=== PATIENT | male | born 1940 | race Caucasian/White ===

== ENCOUNTER 2017-05-28 14:16 | Day surgery (SDC) | payer MEDICARE, BC ==
[2017-05-24 11:00] LABS: BASOPHILS % (AUTO) 0.5 % (0-1); EOSINOPHILS # (AUTO) 0.4 X10'3 (0-0.9); EOSINOPHILS % (AUTO) 8.3 % (0-6); HEMATOCRIT 42.8 % (42.0-52.0); HEMOGLOBIN 14.7 g/dl (14.0-17.9); MEAN CORPUSCULAR HEMOGLOBIN 31.8 PG (27.0-31.0); MEAN CORPUSCULAR HGB CONC 34.4 % (33.0-36.5); MEAN CORPUSCULAR VOLUME 92.5 FL (78-98); MEAN PLATELET VOLUME 8.3 FL (7.4-10.4); MONOCYTES # (AUTO) 0.5 X10'3 (0-0.9); NEUTROPHILS # (AUTO) 3.1 X10'3 (1.8-7.7); NEUTROPHILS % (AUTO) 61.2 % (42-75); PLATELET COUNT 136 X10'3 (140-440); RED BLOOD COUNT 4.62 X10'6 (4.70-6.10); RED CELL DISTRIBUTION WIDTH 13.4 % (11.5-14.5)
[2017-05-24 11:11] LABS: INR 1.1 INR; PARTIAL THROMBOPLASTIN TIME 28 SECONDS (22-32); PROTHROMBIN TIME 11.2 SECONDS (9.0-12.0)
[2017-05-24 11:20] LABS: ALBUMIN 3.6 G/DL (3.4-5.0); ANION GAP 5 (8-16); BLOOD UREA NITROGEN 20 MG/DL (7-18); BUN/CREATININE RATIO 16.7 (5.4-32.0); CALCIUM 9.5 MG/DL (8.5-10.1); CHLORIDE 103 MMOL/L (99-107); GLUCOSE 164 MG/DL (70-104); POTASSIUM 4.7 MMOL/L (3.5-5.1); SODIUM 140 MMOL/L (135-145); eGFR 59 ML/MIN
[2017-05-28] VITALS (7 sets, daily range): BP systolic 110–126; BP diastolic 57–73
[~2017-05-28] VITALS: Ht 177.8 cm; Wt 142.7 kg
[~2017-05-28 14:16] MED LIST: ASCO-336 PO; ATOR10TA70 PO; CHOL10002 PO; CYAN250010 PO; DABI150C PO; ENOX40SY7 SUBCUT; ESCI20TA PO; HYDR-565 PO; LIDO700A5 TP; LIDOcaine 1% (10mg/ml) 2ml vial ONE; LOSA25TA96 PO; LUTE20CA PO; METO25TA6 PO; MODA200T48 PO; MULT1TAB74 PO; NITR0.4T51 SL; OMEP-84 PO; POTA-82 PO; PROAIR 90 MCG INH; TRIAMCINOLONE CREAM TOP
[2017-05-28] MEDS ORDERED: normal saline 1000ml 1,000 ML IV SCH (14:30)
[2017-05-28] MEDS ORDERED: LORazepam 0.5 MG tablet PO PRN (14:30)
[2017-05-28] MEDS ORDERED: diphenhydrAMINE 25mg capsule PO PRN (14:30)
[2017-05-28] MEDS ORDERED: LIDOcaine/PRILOcaine 5gm cream TP ONE (14:35)
[2017-05-28] MEDS ORDERED: METO50TA17 PO (15:39)
[2017-05-28] MEDS ORDERED: CLOP75TA33 PO (15:39)
[2017-05-28] MEDS ORDERED: GABA-534 PO (15:39)
[2017-05-28] MEDS ORDERED: PANT-47 PO (15:39)
[2017-05-28] MEDS ORDERED: LIDOcaine 1%/PF (10mg/ml) 5ml vial ONE (16:22)
[2017-05-28] MEDS ORDERED: verapamil 2.5 mg/ml inj IV ONE (17:22)
[2017-05-28] MEDS ORDERED: fentaNYL/PF 50MCG/1 ML 2ML syringe ONE (17:22)
[2017-05-28] MEDS ORDERED: heparin 1,000 UNITS/NS 500ml 500 ML ONE (17:22)
[2017-05-28] MEDS ORDERED: midazolam 2 mg/2 ml injection ONE (17:22)
[2017-05-28] MEDS ORDERED: heparin 1,000unit/ml 10ml vial 10 ML ONE (17:22)
[2017-05-28] MEDS ORDERED: nitroGLYCERIN-Tridil 50MG/D5W 250 ML IV ONE (17:22)
[2017-05-28] MEDS ORDERED: iohexol 350MG/ML 100ml bottle IV ONE ×2 (17:23→18:13)
[2017-05-28] MEDS ORDERED: HYDROcodone/acetaminophen 5mg/325mg tablet PO PRN (18:40)
[2017-05-28] MEDS ORDERED: ondansetron/PF 4mg/2ml inj IV PRN (18:40)
[2017-05-28] MEDS ORDERED: OXAZEpam 15mg capsule PO PRN (18:45)
[2017-05-28] MEDS ORDERED: proCHLORperazine 10 MG/2 ml inj IV PRN (18:45)
[2017-05-28] MEDS ORDERED: HYDROcodone/acetaminophen 10/325mg tab PO PRN (18:45)
== END 2017-05-28 20:20 | disposition home or self-care (01) ==
LOC: SSTAY O 14:16
PROVIDERS: ATTEND Internal Medicine Interventional Cardiology
DX: I25.10 Atherosclerotic heart disease of native coronary artery without angina pectoris (principal); G47.33 Obstructive sleep apnea (adult) (pediatric); Z86.711 Personal history of pulmonary embolism; Z86.718 Personal history of other venous thrombosis and embolism; Z86.73 Personal history of transient ischemic attack (TIA), and cerebral infarction without residual deficits; I48.91 Unspecified atrial fibrillation; Z95.0 Presence of cardiac pacemaker; Z95.5 Presence of coronary angioplasty implant and graft; I12.9 Hypertensive chronic kidney disease with stage 1 through stage 4 chronic kidney disease, or unspecified chronic kidney disease; N18.9 Chronic kidney disease, unspecified; E78.5 Hyperlipidemia, unspecified
CPT/HCPCS: 36415; 80048; 85025; 85610; 85730; 93458; A6257; A6258; A6402; A6449; C1769; J1644; J2001; J2250; J3010; J3490; J7030; Q0163; Q9967; 99152; 99153; A4620

== ENCOUNTER 2019-02-19 16:00 | Inpatient (IN) | payer MEDICARE, BC ==
[~2019-02-19] VITALS: Ht 175.3 cm; Wt 122.7 kg
[~2019-02-19 16:00] MED LIST changes: -ASCO-336 PO; +CLOP75TA33 PO; +GABA-534 PO; +HYDR-4353 PO; -HYDR-565 PO; -LIDOcaine 1% (10mg/ml) 2ml vial ONE; -METO25TA6 PO; +METO50TA17 PO; -MODA200T48 PO; -OMEP-84 PO; +PANT-47 PO; -PROAIR 90 MCG INH
[2019-02-19] MEDS ORDERED: aspirin 81mg tab.chew PO ONE (16:55)
[2019-02-19 17:28] LABS: BASOPHILS % (AUTO) 0 % (0-1); EOSINOPHILS % (AUTO) 0.4 % (0-6); HEMOGLOBIN 15.2 g/dl (14.0-17.9); LYMPHOCYTES # (AUTO) 0.9 X10'3 (1.1-4.8); LYMPHOCYTES % (AUTO) 8.8 % (21-51); MEAN CORPUSCULAR HEMOGLOBIN 31.2 PG (27.0-31.0); MEAN CORPUSCULAR HGB CONC 33.8 g/dL (33.0-36.5); MEAN CORPUSCULAR VOLUME 92.5 FL (78-98); MEAN PLATELET VOLUME 9.5 FL (7.4-10.4); MONOCYTES # (AUTO) 0.8 X10'3 (0-0.9); MONOCYTES % (AUTO) 7.6 % (2-12); NEUTROPHILS # (AUTO) 8.5 X10'3 (1.8-7.7); NEUTROPHILS % (AUTO) 83.2 % (42-75); PLATELET COUNT 181 X10'3 (140-440); RED BLOOD COUNT 4.86 X10'6 (4.70-6.10); RED CELL DISTRIBUTION WIDTH 13.4 % (11.5-14.5); WHITE BLOOD COUNT 10.3 X10'3 (4.5-11.0)
[2019-02-19 17:47] LABS: ALANINE AMINOTRANSFERASE 36 U/L (12-78); ALBUMIN 3.2 G/DL (3.4-5.0); ALBUMIN/GLOBULIN RATIO 0.9 (1.1-1.5); ALKALINE PHOSPHATASE 61 IU/L (46-116); ANION GAP 11 (8-16); ASPARTATE AMINO TRANSFERASE 19 U/L (10-37); BILIRUBIN,TOTAL 0.9 MG/DL (0.1-1.0); BLOOD UREA NITROGEN 24 MG/DL (7-18); BUN/CREATININE RATIO 15.3 (5.4-32.0); CALCIUM 9.1 MG/DL (8.5-10.1); CHLORIDE 96 MMOL/L (99-107); CREATININE 1.57 MG/DL (0.60-1.10); MAGNESIUM 1.6 MG/DL (1.5-2.4); POTASSIUM 4.7 MMOL/L (3.5-5.1); SODIUM 132 MMOL/L (135-145); TOTAL CARBON DIOXIDE 25.4 MMOL/L (24-32); TOTAL PROTEIN 6.8 G/DL (6.4-8.2); eGFR 43 ML/MIN
[2019-02-19 17:48] LABS: GLUCOSE 664 MG/DL (70-104)
[2019-02-19] MEDS ORDERED: insulin regular, human 10 units/0.1 ml syringe IV ONE ×2 (18:15→19:25)
[2019-02-19] MEDS ORDERED: normal saline 1000ML IV soln IVB ONE (18:15)
[2019-02-19] MEDS ORDERED: HYDROcodone/acetaminophen 10/325mg tab PO ONE (18:25)
--- NOTE | 2019-02-19 18:32 | NUR ---
PLEAE CALL IF PT GETS MOVED UPSTAIRS, MARY
[2019-02-19] MEDS ORDERED: DABI150C PO (18:49)
[2019-02-19] MEDS ORDERED: FENO134C PO (18:49)
[2019-02-19] MEDS ORDERED: PANT20TA3 PO (18:49)
[2019-02-19] MEDS ORDERED: LEVO50TA8 PO (18:49)
[2019-02-19] MEDS ORDERED: MAGN400C PO (18:49)
[2019-02-19] MEDS ORDERED: DULO20CA50 PO (18:49)
[2019-02-19] MEDS ORDERED: ATOR10TA PO (18:49)
[2019-02-19] MEDS ORDERED: mag hydrox/Alum hydrox/simeth 30ml oral suspension PO PRN (19:30)
[2019-02-19] MEDS ORDERED: dextrose ORAL solution 15 GM/59 ML bottle PO PRN ×2 (19:30)
[2019-02-19] MEDS ORDERED: magnesium hydroxide 30ml (MOM) UD suspension PO PRN (19:30)
[2019-02-19] MEDS ORDERED: potassium Cl 20 mEq SR tablet PO PRN ×2 (19:30)
[2019-02-19] MEDS ORDERED: MESSAGE TO PHARMACY PO ONE (19:30)
[2019-02-19] MEDS ORDERED: potassium CL 10mEq/100ml bag 100 ML IV PRN ×2 (19:30)
[2019-02-19] MEDS ORDERED: glucagon, human recombinant 1mg kit SUBCUT PRN (19:30)
[2019-02-19] MEDS ORDERED: dextrose 50%-water 50ml dispensing syringe IV PRN ×2 (19:30)
[2019-02-19] MEDS ORDERED: magnesium Cl slow-release 64mg tablet PO PRN (19:30)
[2019-02-19] MEDS ORDERED: magnesium 2GM in 50ml NS 50 ML IV PRN (19:30)
[2019-02-19] MEDS ORDERED: HYDROcodone/acetaminophen 5mg/325mg tablet PO PRN (19:30)
[2019-02-19] MEDS ORDERED: morphine 2 MG/ML inj. syringe IV PRN ×2 (19:30)
[2019-02-19] MEDS ORDERED: acetaminophen 325mg tablet PO PRN ×2 (19:30)
[2019-02-19] MEDS ORDERED: magnesium 4gm in 100ml NS 100 ML IV PRN (19:30)
[2019-02-19] MEDS ORDERED: ondansetron/PF 4mg/2ml inj IV PRN (19:30)
[2019-02-19] MEDS ORDERED: nitroGLYCERIN 0.4mg SUBLingual tab SL PRN (19:30)
[2019-02-19 20:11] LABS: HEMOGLOBIN A1C 11.8 % (4.5-6.2)
--- NOTE | 2019-02-19 20:34 | NUR ---
PT BG CHECKED, AND PT GIVEN DINNER TRAY
--- NOTE | 2019-02-19 20:45 | NUR ---
received pt report from Gricelda MAYER RN, had opportunity to ask questions.
--- NOTE | 2019-02-19 20:52 | NUR ---
pt arrived to unit with all belongings via gurney, pt ambulated to bed, pt oriented to room and unit, call light in reach, tele placed on pt, VS stable.
[2019-02-19 20:55] VITALS: BP 138/70
[2019-02-19] MEDS ORDERED: insulin glargine (Lantus) pen - multi-dose SQ SCH (21:00)
[2019-02-19] MEDS: insulin Lispro (HumaLOG) vial - multi-dose SQ SCH (22:22)
[2019-02-19 23:00] VITALS: BP 120/64
[2019-02-19] MEDS: nitroGLYCERIN 0.4mg/hour patch TD SCH (23:01)
--- NOTE | 2019-02-19 23:58 | NUR ---
unable to complete timing of medications in med rec at this time. pt states "I don't know what medications I take you have to ask my " will be in tomorrow
[2019-02-20] MEDS: gabapentin 400mg capsule PO SCH ×2 (00:02→07:24)
[2019-02-20] MEDS: enoxaparin 60mg/0.6ml syringe SUBCUT SCH ×2 (00:03→07:26)
[2019-02-20 03:00] VITALS: BP 127/69
[2019-02-20 05:37] LABS: BASOPHILS % (AUTO) 0.1 % (0-1); EOSINOPHILS # (AUTO) 0.1 X10'3 (0-0.9); EOSINOPHILS % (AUTO) 1.2 % (0-6); HEMATOCRIT 42.1 % (42.0-52.0); HEMOGLOBIN 14.6 g/dl (14.0-17.9); LYMPHOCYTES # (AUTO) 1.7 X10'3 (1.1-4.8); LYMPHOCYTES % (AUTO) 20.8 % (21-51); MEAN CORPUSCULAR HEMOGLOBIN 31.4 PG (27.0-31.0); MEAN CORPUSCULAR HGB CONC 34.6 g/dL (33.0-36.5); MEAN CORPUSCULAR VOLUME 90.6 FL (78-98); MEAN PLATELET VOLUME 9.4 FL (7.4-10.4); MONOCYTES # (AUTO) 0.6 X10'3 (0-0.9); MONOCYTES % (AUTO) 7.4 % (2-12); NEUTROPHILS # (AUTO) 5.8 X10'3 (1.8-7.7); NEUTROPHILS % (AUTO) 70.5 % (42-75); PLATELET COUNT 147 X10'3 (140-440); RED BLOOD COUNT 4.65 X10'6 (4.70-6.10); RED CELL DISTRIBUTION WIDTH 13.4 % (11.5-14.5); WHITE BLOOD COUNT 8.2 X10'3 (4.5-11.0)
[2019-02-20] MEDS ORDERED: normal saline 1000ml 1,000 ML IV ONE (05:50)
[2019-02-20 05:51] LABS: ANION GAP 9 (8-16); BLOOD UREA NITROGEN 23 MG/DL (7-18); CALCIUM 9.2 MG/DL (8.5-10.1); CHLORIDE 98 MMOL/L (99-107); CREATININE 1.21 MG/DL (0.60-1.10); GLUCOSE 330 MG/DL (70-104); MAGNESIUM 1.8 MG/DL (1.5-2.4); POTASSIUM 4.1 MMOL/L (3.5-5.1); SODIUM 135 MMOL/L (135-145); TOTAL CARBON DIOXIDE 28.1 MMOL/L (24-32); eGFR 58 ML/MIN
[2019-02-20 06:00] VITALS: BP_SYST 102; BP_SYST 112; BP_DIAS 39; BP_DIAS 58
--- NOTE | 2019-02-20 06:32 | NUR ---
Problems reprioritized. Patient report given, questions answered & plan of care reviewed with Maddy Roper RN.
[2019-02-20] MEDS ORDERED: levoTHYROXINE 25mcg tablet PO SCH (07:00)
--- NOTE | 2019-02-20 07:02 | NUR ---
Patient in room PCU 3026. I have received report from GENNA Javed and had the opportunity to ask questions and assume patient care. Patient is currently resting in bed, bed locked and low, call light in reach, no acute distress, will continue to monitor.
[2019-02-20] MEDS ORDERED: pantoprazole 40mg Tablet.DR PO SCH (07:30)
[2019-02-20] MEDS ORDERED: LIDOcaine 5% patch TP SCH (08:00)
[2019-02-20] MEDS ORDERED: HYDROcodone/acetaminophen 10/325mg tab PO SCH (08:00)
[2019-02-20] MEDS ORDERED: magnesium oxide 400mg tablet PO SCH (08:00)
[2019-02-20] MEDS ORDERED: multivitamins, therapeutics tablet PO SCH (08:00)
[2019-02-20] MEDS ORDERED: cyanocobalamin 500mcg tablet PO SCH (08:00)
[2019-02-20] MEDS ORDERED: K and/or MAG REPLACEMENT MC SCH (08:00)
[2019-02-20] MEDS ORDERED: aspirin 81mg tablet.DR PO SCH (08:00)
[2019-02-20] MEDS ORDERED: atorvastatin 10mg tablet PO SCH ×2 (08:00)
[2019-02-20] MEDS ORDERED: vitamin D (cholecalciferol) 1,000 unit tablet PO SCH (08:00)
[2019-02-20] MEDS ORDERED: duloxetine 20mg capsule.DR PO SCH (08:00)
[2019-02-20] MEDS ORDERED: metoprolol tartrate 50mg tablet PO SCH (08:00)
[2019-02-20] MEDS: insulin Lispro (HumaLOG) vial - multi-dose SQ SCH ×2 (08:28→13:08)
[2019-02-20] MEDS ORDERED: fenofibrate 145mg tablet PO SCH (08:30)
[2019-02-20] MEDS: nitroGLYCERIN 0.4mg/hour patch TD SCH (09:38)
--- NOTE | 2019-02-20 09:56 | NUR ---
PAGER ID: [phone] MESSAGE: Maddy RN, [id number], [id number], Morris, pt c/o 910 chest pain on under left mid axillary 4th ICS, done EKG and getting VS
--- NOTE | 2019-02-20 09:58 | NUR ---
PAGER ID: [phone] MESSAGE: GENNA farmer, [id number], [id number], Morris, EKG appears similar to previous, VSS, applied pt's nitropatch and gave morphine. patient reports pain has shifted to right side of chest still 01/07
[2019-02-20] MEDS ORDERED: FLU VACC QS2019-20(6MOS UP)/PF 60 MCG/0.5 ML SYRINGE IMVAC ONE (10:00)
[2019-02-20] MEDS ORDERED: pneumococcal 23-VAL P-sac vacc 25 mcg/0.5ml vial IMVAC ONE (10:00)
[2019-02-20] MEDS ORDERED: DULO30CA52 PO (10:25)
[2019-02-20 11:00] VITALS: BP 104/53
[2019-02-20 11:10] VITALS: BP 115/46
[2019-02-20] MEDS ORDERED: GLIM4TAB4 PO (12:14)
[2019-02-20] MEDS ORDERED: ASPI-1071 PO (12:14)
[2019-02-20] MEDS ORDERED: METF-950 PO (12:14)
[2019-02-20] MEDS ORDERED: SITA100T11 PO (12:14)
[2019-02-20] MEDS ORDERED: ALBU8.5H8 INH (12:35)
[2019-02-20] MEDS ORDERED: BUDE10.22 INH (12:35)
--- NOTE | 2019-02-20 14:55 | NUR ---
DM education, patient is new onset type 2 diabetes with A1c of 11.8; patient and met at bedside to provide written DM education handout with verbal review and referral to outpatient DM education class. Discussed carb counting in great detail, meal planning, types of carbs, signs of low and high blood glucose. Addendum: 02/20/19 at [address] Amended: Links added.
--- NOTE | 2019-02-20 15:13 | NUR ---
Received order for patient discharge to home. Patient was priovided with appt at DM clinic on next sunday at 10AM, patient prescriptions were called to pharmacy, patient and his were educated on DM nutrition and medications as well as blood glucose checks. telemetry removed, IV removed, catheter tip intact, hemostasis achieved. Patient stable at time of discharge.
== END 2019-02-20 15:00 | disposition home health service (06) | DRG 682 ==
LOC: ER 16:01 → ED HOLD 19:37 → PCU 3S 20:52
PROVIDERS: ADMIT Hospitalist; ATTEND Family Medicine
PROC: 3E0234Z Introduction of Serum, Toxoid and Vaccine into Muscle, Percutaneous Approach (ICD-10-PCS; principal; 2019-02-20)
PROC: 3E02340 Introduction of Influenza Vaccine into Muscle, Percutaneous Approach (ICD-10-PCS; 2019-02-20)
DX: N17.0 Acute kidney failure with tubular necrosis (principal); E11.00 Type 2 diabetes mellitus with hyperosmolarity without nonketotic hyperglycemic-hyperosmolar coma (NKHHC); K50.90 Crohn's disease, unspecified, without complications; Z68.41 Body mass index [BMI] 40.0-44.9, adult; K21.9 Gastro-esophageal reflux disease without esophagitis; E66.01 Morbid (severe) obesity due to excess calories; E03.9 Hypothyroidism, unspecified; E11.22 Type 2 diabetes mellitus with diabetic chronic kidney disease; E78.00 Pure hypercholesterolemia, unspecified; E78.1 Pure hyperglyceridemia; E78.5 Hyperlipidemia, unspecified; F31.9 Bipolar disorder, unspecified; F41.9 Anxiety disorder, unspecified; G89.4 Chronic pain syndrome; I12.9 Hypertensive chronic kidney disease with stage 1 through stage 4 chronic kidney disease, or unspecified chronic kidney disease; E11.40 Type 2 diabetes mellitus with diabetic neuropathy, unspecified; I25.10 Atherosclerotic heart disease of native coronary artery without angina pectoris; J44.9 Chronic obstructive pulmonary disease, unspecified; L40.9 Psoriasis, unspecified; M19.90 Unspecified osteoarthritis, unspecified site; N18.3 Chronic kidney disease, stage 3 (moderate); N40.0 Benign prostatic hyperplasia without lower urinary tract symptoms; Z79.84 Long term (current) use of oral hypoglycemic drugs; Z79.899 Other long term (current) drug therapy; Z86.711 Personal history of pulmonary embolism; Z86.73 Personal history of transient ischemic attack (TIA), and cerebral infarction without residual deficits; Z87.891 Personal history of nicotine dependence; Z90.49 Acquired absence of other specified parts of digestive tract; Z91.19 Patient's noncompliance with other medical treatment and regimen; Z99.81 Dependence on supplemental oxygen; Z23 Encounter for immunization; Z95.0 Presence of cardiac pacemaker; Z88.2 Allergy status to sulfonamides; Z95.5 Presence of coronary angioplasty implant and graft; Z71.3 Dietary counseling and surveillance
CPT/HCPCS: 36415; 71045; 80048; 80053; 82948; 83036; 83605; 83735; 83880; 84484; 85025; 87040; 87081; 90732; 93005; 96374; 99285; G0378; J1650; J1815; J2270; J7030

== ENCOUNTER 2019-12-18 13:05 | Day surgery (SDC) | payer MEDICARE, BC ==
[~2019-12-18 13:05] MED LIST changes: +ALBU8.5H8 INH; +ASPI-1071 PO; +BUDE10.22 INH; -CLOP75TA33 PO; +DULO30CA52 PO; -ENOX40SY7 SUBCUT; -ESCI20TA PO; +FENO134C PO; +LEVO50TA8 PO; +MAGN400C PO; +MULT-620 PO; -MULT1TAB74 PO; -PANT-47 PO; +PANT20TA3 PO; +SITA100T11 PO; -TRIAMCINOLONE CREAM TOP
[2019-12-18] MEDS ORDERED: LIDOcaine 2% 5ml jelly ONE (13:25)
== END 2019-12-18 13:40 | disposition home or self-care (01) ==
LOC: WOUND CARE 13:05
PROVIDERS: ATTEND Nurse Practitioner
DX: E11.622 Type 2 diabetes mellitus with other skin ulcer (principal); L98.492 Non-pressure chronic ulcer of skin of other sites with fat layer exposed; L02.213 Cutaneous abscess of chest wall; I11.0 Hypertensive heart disease with heart failure; I50.9 Heart failure, unspecified; E11.36 Type 2 diabetes mellitus with diabetic cataract; E11.51 Type 2 diabetes mellitus with diabetic peripheral angiopathy without gangrene; I25.10 Atherosclerotic heart disease of native coronary artery without angina pectoris; I25.2 Old myocardial infarction; M19.90 Unspecified osteoarthritis, unspecified site; E78.5 Hyperlipidemia, unspecified; J44.9 Chronic obstructive pulmonary disease, unspecified; K50.90 Crohn's disease, unspecified, without complications; E03.9 Hypothyroidism, unspecified; F41.9 Anxiety disorder, unspecified; F32.9 Major depressive disorder, single episode, unspecified; Z86.711 Personal history of pulmonary embolism; Z90.49 Acquired absence of other specified parts of digestive tract; Z85.828 Personal history of other malignant neoplasm of skin; Z95.0 Presence of cardiac pacemaker; Z95.5 Presence of coronary angioplasty implant and graft; Z86.73 Personal history of transient ischemic attack (TIA), and cerebral infarction without residual deficits
CPT/HCPCS: 36416; 82948; 97597

== ENCOUNTER 2019-12-25 12:51 | Day surgery (SDC) | payer MEDICARE, BC ==
[2019-12-25] MEDS ORDERED: LIDOcaine 2% 5ml jelly ONE (13:18)
== END 2019-12-25 13:57 | disposition home or self-care (01) ==
LOC: WOUND CARE 12:51
PROVIDERS: ATTEND Nurse Practitioner
DX: E11.622 Type 2 diabetes mellitus with other skin ulcer (principal); L98.492 Non-pressure chronic ulcer of skin of other sites with fat layer exposed; L02.213 Cutaneous abscess of chest wall; I11.0 Hypertensive heart disease with heart failure; I50.9 Heart failure, unspecified; E11.36 Type 2 diabetes mellitus with diabetic cataract; E11.51 Type 2 diabetes mellitus with diabetic peripheral angiopathy without gangrene; I25.2 Old myocardial infarction; M19.90 Unspecified osteoarthritis, unspecified site; E78.5 Hyperlipidemia, unspecified; J44.9 Chronic obstructive pulmonary disease, unspecified; E03.9 Hypothyroidism, unspecified; K50.90 Crohn's disease, unspecified, without complications; F41.9 Anxiety disorder, unspecified; F32.9 Major depressive disorder, single episode, unspecified; Z86.711 Personal history of pulmonary embolism; Z90.49 Acquired absence of other specified parts of digestive tract; Z85.828 Personal history of other malignant neoplasm of skin; Z95.0 Presence of cardiac pacemaker; Z95.5 Presence of coronary angioplasty implant and graft; Z86.73 Personal history of transient ischemic attack (TIA), and cerebral infarction without residual deficits
CPT/HCPCS: 36416; 82948; 97597

== ENCOUNTER 2020-01-01 12:46 | Day surgery (SDC) | payer MEDICARE, BC ==
[~2020-01-01 12:46] MED LIST changes: +PANT20TA18 PO; -PANT20TA3 PO
[2020-01-01] MEDS ORDERED: LIDOcaine 2% 5ml jelly ONE (13:11)
== END 2020-01-01 13:37 | disposition home or self-care (01) ==
LOC: WOUND CARE 12:46
PROVIDERS: ATTEND Nurse Practitioner
DX: E11.622 Type 2 diabetes mellitus with other skin ulcer (principal); L98.492 Non-pressure chronic ulcer of skin of other sites with fat layer exposed; L02.213 Cutaneous abscess of chest wall; M19.90 Unspecified osteoarthritis, unspecified site; I11.0 Hypertensive heart disease with heart failure; I50.9 Heart failure, unspecified; I25.10 Atherosclerotic heart disease of native coronary artery without angina pectoris; I25.2 Old myocardial infarction; J44.9 Chronic obstructive pulmonary disease, unspecified; E78.5 Hyperlipidemia, unspecified; K50.90 Crohn's disease, unspecified, without complications; E03.9 Hypothyroidism, unspecified; F32.9 Major depressive disorder, single episode, unspecified; F41.9 Anxiety disorder, unspecified; Z86.711 Personal history of pulmonary embolism; Z90.49 Acquired absence of other specified parts of digestive tract; Z85.828 Personal history of other malignant neoplasm of skin; Z95.0 Presence of cardiac pacemaker; Z95.5 Presence of coronary angioplasty implant and graft; Z86.73 Personal history of transient ischemic attack (TIA), and cerebral infarction without residual deficits
CPT/HCPCS: 36416; 82948; 97597

== ENCOUNTER → 2020-01-08 | Day surgery (SDC) | payer MEDICARE, BC ==
[~2020-01-08] MED LIST changes: +LIDOcaine 2% 5ml jelly ONE
== END | disposition home or self-care (01) ==
LOC: WOUND CARE 12:00
PROVIDERS: ATTEND Nurse Practitioner
DX: L02.213 Cutaneous abscess of chest wall (principal); E11.622 Type 2 diabetes mellitus with other skin ulcer; L98.492 Non-pressure chronic ulcer of skin of other sites with fat layer exposed; M19.90 Unspecified osteoarthritis, unspecified site; I11.0 Hypertensive heart disease with heart failure; I50.9 Heart failure, unspecified; I25.10 Atherosclerotic heart disease of native coronary artery without angina pectoris; I25.2 Old myocardial infarction; J44.9 Chronic obstructive pulmonary disease, unspecified; E78.5 Hyperlipidemia, unspecified; K50.90 Crohn's disease, unspecified, without complications; E03.9 Hypothyroidism, unspecified; N40.0 Benign prostatic hyperplasia without lower urinary tract symptoms; F32.9 Major depressive disorder, single episode, unspecified; F41.9 Anxiety disorder, unspecified; Z86.711 Personal history of pulmonary embolism; Z90.49 Acquired absence of other specified parts of digestive tract; Z85.828 Personal history of other malignant neoplasm of skin; Z95.0 Presence of cardiac pacemaker; Z95.5 Presence of coronary angioplasty implant and graft; Z86.73 Personal history of transient ischemic attack (TIA), and cerebral infarction without residual deficits
CPT/HCPCS: 36416; 82948; 97597

== ENCOUNTER 2020-01-15 13:00 | Day surgery (SDC) | payer MEDICARE, BC ==
[~2020-01-15 13:00] MED LIST changes: -LIDOcaine 2% 5ml jelly ONE
[2020-01-15] MEDS ORDERED: LIDOcaine 2% 5ml jelly ONE (13:57)
== END 2020-01-15 14:20 | disposition home or self-care (01) ==
LOC: WOUND CARE 13:00
PROVIDERS: ATTEND Nurse Practitioner
DX: T81.31XD Disruption of external operation (surgical) wound, not elsewhere classified, subsequent encounter (principal); E11.622 Type 2 diabetes mellitus with other skin ulcer; L98.492 Non-pressure chronic ulcer of skin of other sites with fat layer exposed; L02.213 Cutaneous abscess of chest wall; M19.90 Unspecified osteoarthritis, unspecified site; I11.0 Hypertensive heart disease with heart failure; I50.9 Heart failure, unspecified; I25.10 Atherosclerotic heart disease of native coronary artery without angina pectoris; J44.9 Chronic obstructive pulmonary disease, unspecified; E78.5 Hyperlipidemia, unspecified; K50.90 Crohn's disease, unspecified, without complications; E03.9 Hypothyroidism, unspecified; N40.0 Benign prostatic hyperplasia without lower urinary tract symptoms; F32.9 Major depressive disorder, single episode, unspecified; F41.9 Anxiety disorder, unspecified; Z86.711 Personal history of pulmonary embolism; Z90.49 Acquired absence of other specified parts of digestive tract; Z85.828 Personal history of other malignant neoplasm of skin; Z95.0 Presence of cardiac pacemaker; Z95.5 Presence of coronary angioplasty implant and graft; Z86.73 Personal history of transient ischemic attack (TIA), and cerebral infarction without residual deficits; Y83.8 Other surgical procedures as the cause of abnormal reaction of the patient, or of later complication, without mention of misadventure at the time of the procedure
CPT/HCPCS: 36416; 82948; 97597

== ENCOUNTER 2020-01-22 13:05 | Day surgery (SDC) | payer MEDICARE, BC ==
[2020-01-22] MEDS ORDERED: LIDOcaine 2% 5ml jelly ONE (13:31)
== END 2020-01-22 14:06 | disposition home or self-care (01) ==
LOC: WOUND CARE 13:05
PROVIDERS: ATTEND Nurse Practitioner
DX: L02.213 Cutaneous abscess of chest wall (principal); E11.622 Type 2 diabetes mellitus with other skin ulcer; L98.492 Non-pressure chronic ulcer of skin of other sites with fat layer exposed; M19.90 Unspecified osteoarthritis, unspecified site; I11.0 Hypertensive heart disease with heart failure; I50.9 Heart failure, unspecified; I25.10 Atherosclerotic heart disease of native coronary artery without angina pectoris; I25.2 Old myocardial infarction; J44.9 Chronic obstructive pulmonary disease, unspecified; E78.5 Hyperlipidemia, unspecified; K50.90 Crohn's disease, unspecified, without complications; E03.9 Hypothyroidism, unspecified; N40.0 Benign prostatic hyperplasia without lower urinary tract symptoms; E11.36 Type 2 diabetes mellitus with diabetic cataract; E11.51 Type 2 diabetes mellitus with diabetic peripheral angiopathy without gangrene; F32.9 Major depressive disorder, single episode, unspecified; F41.9 Anxiety disorder, unspecified; Z86.711 Personal history of pulmonary embolism; Z90.49 Acquired absence of other specified parts of digestive tract; Z85.828 Personal history of other malignant neoplasm of skin; Z95.0 Presence of cardiac pacemaker; Z95.5 Presence of coronary angioplasty implant and graft; Z86.73 Personal history of transient ischemic attack (TIA), and cerebral infarction without residual deficits
CPT/HCPCS: 36416; 82948; 97597

== ENCOUNTER 2020-01-29 12:00 | Day surgery (SDC) | payer MEDICARE, BC | END 2020-01-29 13:58 | disposition home or self-care (01) | LOC: WOUND CARE 12:00 | PROVIDERS: ATTEND Nurse Practitioner | DX: L02.213 Cutaneous abscess of chest wall (principal); E11.622 Type 2 diabetes mellitus with other skin ulcer; L98.492 Non-pressure chronic ulcer of skin of other sites with fat layer exposed; M19.90 Unspecified osteoarthritis, unspecified site; I11.0 Hypertensive heart disease with heart failure; I50.9 Heart failure, unspecified; I25.10 Atherosclerotic heart disease of native coronary artery without angina pectoris; I25.2 Old myocardial infarction; J44.9 Chronic obstructive pulmonary disease, unspecified; E78.5 Hyperlipidemia, unspecified; K50.90 Crohn's disease, unspecified, without complications; E03.9 Hypothyroidism, unspecified; N40.0 Benign prostatic hyperplasia without lower urinary tract symptoms; F32.9 Major depressive disorder, single episode, unspecified; F41.9 Anxiety disorder, unspecified; Z86.711 Personal history of pulmonary embolism; Z90.49 Acquired absence of other specified parts of digestive tract; Z85.828 Personal history of other malignant neoplasm of skin; Z95.0 Presence of cardiac pacemaker; Z95.5 Presence of coronary angioplasty implant and graft; Z86.73 Personal history of transient ischemic attack (TIA), and cerebral infarction without residual deficits | CPT/HCPCS: 36416; 82948; 97597 ==

== ENCOUNTER 2020-02-05 12:50 | Day surgery (SDC) | payer MEDICARE, BC ==
[2020-02-05] MEDS ORDERED: LIDOcaine 2% 5ml jelly ONE (13:49)
== END 2020-02-05 14:27 | disposition home or self-care (01) ==
LOC: WOUND CARE 12:50
PROVIDERS: ATTEND Nurse Practitioner
DX: L02.213 Cutaneous abscess of chest wall (principal); E11.622 Type 2 diabetes mellitus with other skin ulcer; L98.492 Non-pressure chronic ulcer of skin of other sites with fat layer exposed; M19.90 Unspecified osteoarthritis, unspecified site; I11.0 Hypertensive heart disease with heart failure; I50.9 Heart failure, unspecified; I25.10 Atherosclerotic heart disease of native coronary artery without angina pectoris; I25.2 Old myocardial infarction; E11.36 Type 2 diabetes mellitus with diabetic cataract; E11.51 Type 2 diabetes mellitus with diabetic peripheral angiopathy without gangrene; J44.9 Chronic obstructive pulmonary disease, unspecified; E78.5 Hyperlipidemia, unspecified; K50.90 Crohn's disease, unspecified, without complications; E03.9 Hypothyroidism, unspecified; N40.0 Benign prostatic hyperplasia without lower urinary tract symptoms; F32.9 Major depressive disorder, single episode, unspecified; F41.9 Anxiety disorder, unspecified; Z86.711 Personal history of pulmonary embolism; Z90.49 Acquired absence of other specified parts of digestive tract; Z85.828 Personal history of other malignant neoplasm of skin; Z95.0 Presence of cardiac pacemaker; Z95.5 Presence of coronary angioplasty implant and graft; Z86.73 Personal history of transient ischemic attack (TIA), and cerebral infarction without residual deficits
CPT/HCPCS: 36416; 82948; 97597

== ENCOUNTER 2020-06-24 10:10 | Emergency (ER) | payer MEDICARE, BC ==
[~2020-06-24] VITALS: Ht 175.3 cm; Wt 125.0 kg
[~2020-06-24 10:10] MED LIST changes: -ALBU8.5H8 INH; -ASPI-1071 PO; +ASPI-611 PO; -BUDE10.22 INH; -CHOL10002 PO; -CYAN250010 PO; -DULO30CA52 PO; +DULO60CA65 PO; +FURO40TA4 PO; +GLIM4TAB7 PO; +HYDR-3972 PO; -HYDR-4353 PO; -LIDO700A5 TP; +LOSA25TA41 PO; -LOSA25TA96 PO; -LUTE20CA PO; -MAGN400C PO; +METF-950 PO; +METO50TA16 PO; -METO50TA17 PO; -MULT-620 PO; -NITR0.4T51 SL; +NYSPWD TP; -POTA-82 PO; +POTA20TA19 PO; +PRED20TA PO; -SITA100T11 PO; +SITA100T15 PO
[2020-06-24 10:57] LABS: BASOPHILS % (AUTO) 0.5 % (0-1); EOSINOPHILS # (AUTO) 0.4 X10'3 (0-0.9); HEMATOCRIT 43.6 % (42.0-52.0); HEMOGLOBIN 14.2 g/dl (14.0-17.9); LYMPHOCYTES # (AUTO) 1.1 X10'3 (1.1-4.8); LYMPHOCYTES % (AUTO) 12.7 % (21-51); MEAN CORPUSCULAR HEMOGLOBIN 29.2 PG (27.0-31.0); MEAN CORPUSCULAR HGB CONC 32.7 g/dL (33.0-36.5); MEAN CORPUSCULAR VOLUME 89.4 FL (78-98); MEAN PLATELET VOLUME 8.7 FL (7.4-10.4); MONOCYTES # (AUTO) 0.9 X10'3 (0-0.9); MONOCYTES % (AUTO) 9.9 % (2-12); NEUTROPHILS # (AUTO) 6.2 X10'3 (1.8-7.7); NEUTROPHILS % (AUTO) 71.9 % (42-75); PLATELET COUNT 139 X10'3 (140-440); RED BLOOD COUNT 4.87 X10'6 (4.70-6.10); RED CELL DISTRIBUTION WIDTH 15.5 % (11.5-14.5); WHITE BLOOD COUNT 8.6 X10'3 (4.5-11.0)
[2020-06-24 11:11] LABS: ALANINE AMINOTRANSFERASE 27 U/L (12-78); ALBUMIN 3.4 G/DL (3.4-5.0); ALBUMIN/GLOBULIN RATIO 0.9 (1.1-1.5); ALKALINE PHOSPHATASE 35 IU/L (46-116); ANION GAP 5 (8-16); ASPARTATE AMINO TRANSFERASE 18 U/L (10-37); BLOOD UREA NITROGEN 31 MG/DL (7-18); BUN/CREATININE RATIO 18.2 (5.4-32.0); CALCIUM 9.7 MG/DL (8.5-10.1); CHLORIDE 100 MMOL/L (99-107); GLUCOSE 263 MG/DL (70-104); POTASSIUM 3.5 MMOL/L (3.5-5.1); SODIUM 139 MMOL/L (135-145); TOTAL CARBON DIOXIDE 34.2 MMOL/L (24-32); TOTAL PROTEIN 7.3 G/DL (6.4-8.2); eGFR 39 ML/MIN
--- NOTE | 2020-06-24 12:04 | NUR ---
pt returns from ct. at bs
[2020-06-24 12:05] VITALS: BP 117/56
== END 2020-06-24 13:00 | disposition home or self-care (01) ==
LOC: ER 10:10
DX: I50.9 Heart failure, unspecified (principal); I25.10 Atherosclerotic heart disease of native coronary artery without angina pectoris; E78.00 Pure hypercholesterolemia, unspecified; I10 Essential (primary) hypertension; J44.9 Chronic obstructive pulmonary disease, unspecified; F41.9 Anxiety disorder, unspecified; F31.9 Bipolar disorder, unspecified; Z86.73 Personal history of transient ischemic attack (TIA), and cerebral infarction without residual deficits; Z86.711 Personal history of pulmonary embolism; Z86.2 Personal history of diseases of the blood and blood-forming organs and certain disorders involving the immune mechanism; Z90.89 Acquired absence of other organs; Z90.49 Acquired absence of other specified parts of digestive tract; Z95.0 Presence of cardiac pacemaker; Z98.890 Other specified postprocedural states; Z88.2 Allergy status to sulfonamides; Z79.82 Long term (current) use of aspirin; Z79.899 Other long term (current) drug therapy
CPT/HCPCS: 36415; 71045; 74176; 80053; 83880; 84484; 85025; 93005; 99285

== ENCOUNTER 2022-12-19 12:33 | Day surgery (SDC) | payer MEDICARE, BC ==
[2022-12-15 12:37] LABS: BASOPHILS # (AUTO) 0.1 X10'3 (0-0.2); EOSINOPHILS # (AUTO) 0.2 X10'3 (0-0.9); EOSINOPHILS % (AUTO) 5.1 % (0-6); HEMATOCRIT 42.4 % (42.0-52.0); HEMOGLOBIN 13.9 g/dl (14.0-17.9); LYMPHOCYTES # (AUTO) 0.9 X10'3 (1.1-4.8); LYMPHOCYTES % (AUTO) 18.7 % (21-51); MEAN CORPUSCULAR HEMOGLOBIN 30.8 PG (27.0-31.0); MEAN CORPUSCULAR HGB CONC 32.8 g/dL (33.0-36.5); MEAN CORPUSCULAR VOLUME 93.8 FL (78-98); MEAN PLATELET VOLUME 8.9 FL (7.4-10.4); MONOCYTES # (AUTO) 0.4 X10'3 (0-0.9); MONOCYTES % (AUTO) 9.2 % (2-12); PLATELET COUNT 138 X10'3 (140-440); RED BLOOD COUNT 4.52 X10'6 (4.70-6.10); RED CELL DISTRIBUTION WIDTH 15.7 % (11.5-14.5); WHITE BLOOD COUNT 4.6 X10'3 (4.5-11.0)
[2022-12-15 12:46] LABS: APTT 35 SECONDS (22-32); INR 1.3 INR; PROTHROMBIN TIME 13.5 SECONDS (9.0-12.0)
[2022-12-15 12:49] LABS: ALBUMIN 3.6 G/DL (3.4-5.0); ANION GAP 7 (8-16); BLOOD UREA NITROGEN 26 MG/DL (7-18); BUN/CREATININE RATIO 16.9 (10.0-20.0); CALCIUM 9.8 MG/DL (8.5-10.1); CHLORIDE 104 MMOL/L (99-107); CHOL/HDL RATIO 2.2 (0.00-4.99); CHOLESTEROL 82 MG/DL (0-200); CREATININE 1.54 MG/DL (0.60-1.10); GLUCOSE 146 MG/DL (70-104); HDL CHOLESTEROL 37 MG/DL (35-60); LDL CHOLESTEROL 34 MG/DL (50-100); POTASSIUM 4.1 MMOL/L (3.5-5.1); SODIUM 138 MMOL/L (135-145); TOTAL CARBON DIOXIDE 27.5 MMOL/L (24-32); TRIGLYCERIDES 68 MG/DL (20-135); eGFR 43 ML/MIN
[2022-12-19] VITALS (8 sets, daily range): BP systolic 105–127; BP diastolic 47–83; PULSE 73–83; RESP 12–24; TEMP 97.6; O2SAT 93–95
[~2022-12-19] VITALS: Ht 175.3 cm; Wt 123.0 kg
[~2022-12-19 12:33] MED LIST changes: -FENO134C PO; +FENO134C21 PO; +FURO20TA4 PO; -FURO40TA4 PO; -GABA-534 PO; +GABA-535 PO; +METF-1203 PO; -METF-950 PO; -NYSPWD TP; -PANT20TA18 PO; +PANT40TA54 PO; +POTA-207 PO; -POTA20TA19 PO; -PRED20TA PO
[2022-12-19] MEDS ORDERED: diphenhydrAMINE 25mg capsule PO PRN (13:00)
[2022-12-19] MEDS ORDERED: LORazepam 0.5 MG tablet PO PRN (13:00)
[2022-12-19] MEDS ORDERED: normal saline 1,000 ML IV SCH (13:00)
[2022-12-19] MEDS ORDERED: CYAN250014 (14:02)
[2022-12-19] MEDS ORDERED: CHOL100046 PO (14:02)
[2022-12-19] MEDS ORDERED: LUTE20TA PO (14:02)
[2022-12-19] MEDS ORDERED: SEMA14TA2 PO (14:02)
[2022-12-19] MEDS ORDERED: ASCO500T19 PO (14:02)
[2022-12-19] MEDS ORDERED: MAGN400T39 PO (14:02)
[2022-12-19] MEDS ORDERED: KEN0.1O TP (14:02)
[2022-12-19] MEDS ORDERED: heparin 1,000unit/ml 10ml vial 10 ML ONE (15:18)
[2022-12-19] MEDS ORDERED: verapamil 2.5 mg/ml inj IV ONE (15:18)
[2022-12-19] MEDS ORDERED: fentaNYL/PF 50MCG/1 ML 2ML syringe ONE (15:18)
[2022-12-19] MEDS ORDERED: midazolam 1 mg/ML 2ml injection ONE (15:18)
[2022-12-19] MEDS ORDERED: iohexol 350MG/ML 100ml bottle IV ONE (15:18)
[2022-12-19] MEDS ORDERED: nitroGLYCERIN-Tridil 50MG/D5W 250 ML IV ONE (15:18)
[2022-12-19] MEDS ORDERED: LIDOcaine 1% (10mg/ml) 2ml vial ONE (15:18)
[2022-12-19] MEDS ORDERED: HYDROcodone/acetaminophen 5mg/325mg tablet PO PRN (17:05)
[2022-12-19] MEDS ORDERED: HYDROcodone/acetaminophen 10/325mg tab PO PRN (17:05)
== END 2022-12-19 19:10 | disposition home or self-care (01) ==
LOC: SSTAY O 12:33
PROVIDERS: ATTEND Student in an Organized Health Care Education/Training Program
DX: R94.39 Abnormal result of other cardiovascular function study (principal); I25.10 Atherosclerotic heart disease of native coronary artery without angina pectoris; E78.5 Hyperlipidemia, unspecified; I27.20 Pulmonary hypertension, unspecified; E11.22 Type 2 diabetes mellitus with diabetic chronic kidney disease; I13.0 Hypertensive heart and chronic kidney disease with heart failure and stage 1 through stage 4 chronic kidney disease, or unspecified chronic kidney disease; N18.9 Chronic kidney disease, unspecified; I50.9 Heart failure, unspecified; G47.33 Obstructive sleep apnea (adult) (pediatric); I48.0 Paroxysmal atrial fibrillation; I49.5 Sick sinus syndrome; M02.30 Reiter's disease, unspecified site; Z86.711 Personal history of pulmonary embolism; Z86.73 Personal history of transient ischemic attack (TIA), and cerebral infarction without residual deficits; Z95.0 Presence of cardiac pacemaker; Z88.2 Allergy status to sulfonamides; Z88.8 Allergy status to other drugs, medicaments and biological substances; Z95.5 Presence of coronary angioplasty implant and graft; Z86.718 Personal history of other venous thrombosis and embolism; Z79.899 Other long term (current) drug therapy; Z79.82 Long term (current) use of aspirin
CPT/HCPCS: 36415; 80048; 80061; 85025; 85610; 85730; 93005; 93458; 99152; J1644; J2250; J3010; J3490; J7030; Q0163; Q9967; 99153; A4615; A6258; A6402; C1894

== ENCOUNTER 2023-05-16 10:34 | Inpatient (IN) | payer MEDICARE, BC ==
[~2023-05-16] VITALS: Ht 172.7 cm; Wt 114.1 kg
[2023-05-16] VITALS (9 sets, daily range): BP systolic 140; BP diastolic 68; PULSE 82–91; RESP 22–36; TEMP 98.1; O2SAT 93–98
[~2023-05-16 10:34] MED LIST changes: +ASCO500T19 PO; -ASPI-611 PO; -ATOR10TA70 PO; +CHOL100046 PO; +CYAN250014; -DABI150C PO; -FURO20TA4 PO; -GLIM4TAB7 PO; +KEN0.1O TP; -LOSA25TA41 PO; +LUTE20TA PO; +MAGN400T39 PO; -METO50TA16 PO; -POTA-207 PO; +SEMA14TA2 PO; -SITA100T15 PO
[2023-05-16 11:25] LABS: ALANINE AMINOTRANSFERASE 15 U/L (12-78); ALBUMIN 3.3 G/DL (3.4-5.0); ALBUMIN/GLOBULIN RATIO 0.6 (1.1-1.5); ALKALINE PHOSPHATASE 47 IU/L (46-116); ANION GAP 10 (8-16); ASPARTATE AMINO TRANSFERASE 31 U/L (10-37); BASOPHILS % (AUTO) 0.4 % (0-1); BILIRUBIN,TOTAL 1.4 MG/DL (0.1-1.0); BLOOD UREA NITROGEN 25 MG/DL (7-18); BUN/CREATININE RATIO 14.4 (10.0-20.0); CHLORIDE 99 MMOL/L (99-107); CREATININE 1.74 MG/DL (0.60-1.10); EOSINOPHILS # (AUTO) 0.1 X10'3 (0-0.9); EOSINOPHILS % (AUTO) 2.1 % (0-6); GLUCOSE 123 MG/DL (70-104); HEMATOCRIT 40.8 % (42.0-52.0); HEMOGLOBIN 13.4 g/dl (14.0-17.9); LYMPHOCYTES # (AUTO) 0.6 X10'3 (1.1-4.8); LYMPHOCYTES % (AUTO) 11.5 % (21-51); MEAN CORPUSCULAR HEMOGLOBIN 31.3 PG (27.0-31.0); MEAN CORPUSCULAR HGB CONC 32.7 g/dL (33.0-36.5); MEAN CORPUSCULAR VOLUME 95.5 FL (78-98); MEAN PLATELET VOLUME 8.9 FL (7.4-10.4); MONOCYTES # (AUTO) 0.7 X10'3 (0-0.9); MONOCYTES % (AUTO) 14.6 % (2-12); NEUTROPHILS # (AUTO) 3.7 X10'3 (1.8-7.7); NEUTROPHILS % (AUTO) 71.4 % (42-75); PLATELET COUNT 104 X10'3 (140-440); POTASSIUM 4.3 MMOL/L (3.5-5.1); RED BLOOD COUNT 4.27 X10'6 (4.70-6.10); RED CELL DISTRIBUTION WIDTH 15.8 % (11.5-14.5); SODIUM 136 MMOL/L (135-145); TOTAL CARBON DIOXIDE 26.6 MMOL/L (24-32); TOTAL PROTEIN 8.4 G/DL (6.4-8.2); WHITE BLOOD COUNT 5.1 X10'3 (4.5-11.0); eCRCL 31 ML/MIN; eGFR 38 ML/MIN
[2023-05-16] MEDS ORDERED: methylPREDNISolone sod succ 125mg/2ml vial IV ONE (11:25)
[2023-05-16] MEDS ORDERED: CefTRIAXone 2gm/D5W 50ml BAG 50 ML IV SCH (11:25)
[2023-05-16] MEDS ORDERED: magnesium 2GM in 50ml NS 50 ML IV ONE ×2 (11:30→12:30)
[2023-05-16 11:33] LABS: PRO BRAIN NATRIURETIC PEPTIDE 4676 PG/ML (0-450)
[2023-05-16 14:37] LABS: ABG BASE EXCESS -0.7 mmol/L (-2.0-2.0); ABG HCO3 22.6 mmol/L (22.0-26.0); ABG OXYGEN SATURATION 96.5 % (94-97); ABG PH (T) 7.452 (7.340-7.440); ALLEN'S TEST POSITIVE; FCOHb 0.7 % (0.0-3.9); FHHb 3.5 % (0.0-5.0); FMetHb 0.2 % (0.0-1.5); FO2Hb 95.6 % (94-97); MODE MASK - BIPAP; PATIENT TEMPERATURE 36.6; RESPIRATORY RATE 10 b/min; TOTAL HEMOGLOBIN 14.3 G/dl (14.0-17.9)
[2023-05-16] MEDS ORDERED: potassium Cl 40MEQ/1/2NS 520ml 520 ML IV PRN (14:50)
[2023-05-16] MEDS ORDERED: mag hydrox/Alum hydrox/simeth 30ml oral suspension PO PRN (14:50)
[2023-05-16] MEDS ORDERED: ondansetron/PF 4mg/2ml inj IV PRN (14:50)
[2023-05-16] MEDS ORDERED: magnesium 4gm in 100ml NS 100 ML IV PRN (14:50)
[2023-05-16] MEDS ORDERED: magnesium Cl slow-release 64mg tablet PO PRN (14:50)
[2023-05-16] MEDS ORDERED: potassium Cl 20 mEq SR tablet PO PRN ×2 (14:50)
[2023-05-16] MEDS ORDERED: magnesium 2GM in 50ml NS 50 ML IV PRN (14:50)
[2023-05-16] MEDS ORDERED: acetaminophen 325mg tablet PO PRN (14:50)
[2023-05-16] MEDS ORDERED: magnesium hydroxide 30ml (MOM) UD suspension PO PRN (14:50)
[2023-05-16] MEDS ORDERED: ipratropium/albuterol 3ml nebule NEB SCH (15:00)
[2023-05-16] MEDS ORDERED: azithromycin/NS 500mg/250ml 250 ML IV ONE (15:00)
[2023-05-16 15:07] LABS: BILIRUBIN,URINE NEGATIVE (Neg); CLARITY,URINE CLOUDY (Clear); COLOR,URINE YELLOW (Yellow); GLUCOSE, URINE NEGATIVE (Neg); KETONES,URINE NEGATIVE (Neg); LEUKOCYTE ESTERASE ,URINE SMALL (Neg); NITRITES, URINE POSITIVE (Neg); OCCULT BLOOD,URINE MODERATE (Neg); PH,URINE 5.5 (4.8-8.0); PROTEIN,URINE 30 mg/dl (Neg)
[2023-05-16 15:21] LABS: UA COLLECTION TYPE URINAL
[2023-05-16 15:31] LABS: HYALINE CASTS 0-3 /LPF (NEGATIVE); MUCUS STRANDS FEW /LPF (Neg); SQUAMOUS EPITHELIAL CELL,UR FEW /LPF (FEW)
[2023-05-16 15:32] LABS: AMORPHOUS URATES 1+; BACTERIA,URINE 3+ /HPF (Neg); WBC,URINE TNTC /HPF (0-4)
[2023-05-16 15:33] LABS: CAL OXALATE CRYSTALS 2+ /HPF (NEGATIVE)
[2023-05-16 16:15] LABS: THYROID STIMULATING HORMONE 1.34 ulU/ml (0.34-4.50)
[2023-05-16] MEDS: dabigatran 150mg capsule PO SCH (20:00)
[2023-05-16] MEDS: K and/or MAG REPLACEMENT MC SCH (20:10)
[2023-05-16] MEDS: ipratropium/albuterol 3ml nebule NEB PRN (21:05)
[2023-05-16] MEDS: budesonide 0.5mg/2ml UD nebule IH SCH (21:06)
[2023-05-17] VITALS (15 sets, daily range): BP systolic 110–150; BP diastolic 54–83; PULSE 76–99; RESP 18–30; TEMP 97.1–98.3; O2SAT 94–99
[2023-05-17] MEDS: levoTHYROXINE 75mcg tablet PO SCH (07:00)
[2023-05-17 07:35] LABS: BASOPHILS % (AUTO) 0.2 % (0-1); EOSINOPHILS % (AUTO) 0.1 % (0-6); HEMATOCRIT 40.8 % (42.0-52.0); HEMOGLOBIN 13.8 g/dl (14.0-17.9); LYMPHOCYTES # (AUTO) 0.7 X10'3 (1.1-4.8); LYMPHOCYTES % (AUTO) 14.1 % (21-51); MEAN CORPUSCULAR HEMOGLOBIN 31.7 PG (27.0-31.0); MEAN CORPUSCULAR HGB CONC 33.7 g/dL (33.0-36.5); MEAN CORPUSCULAR VOLUME 94.3 FL (78-98); MEAN PLATELET VOLUME 8.9 FL (7.4-10.4); MONOCYTES # (AUTO) 0.9 X10'3 (0-0.9); MONOCYTES % (AUTO) 17.1 % (2-12); NEUTROPHILS # (AUTO) 3.6 X10'3 (1.8-7.7); NEUTROPHILS % (AUTO) 68.5 % (42-75); PLATELET COUNT 107 X10'3 (140-440); RED BLOOD COUNT 4.33 X10'6 (4.70-6.10); RED CELL DISTRIBUTION WIDTH 15.5 % (11.5-14.5); WHITE BLOOD COUNT 5.3 X10'3 (4.5-11.0)
[2023-05-17 07:53] LABS: ALANINE AMINOTRANSFERASE 17 U/L (12-78); ALBUMIN 3.5 G/DL (3.4-5.0); ALBUMIN/GLOBULIN RATIO 0.7 (1.1-1.5); ALKALINE PHOSPHATASE 48 IU/L (46-116); ANION GAP 10 (8-16); ASPARTATE AMINO TRANSFERASE 41 U/L (10-37); BILIRUBIN,TOTAL 1.1 MG/DL (0.1-1.0); BLOOD UREA NITROGEN 26 MG/DL (7-18); BUN/CREATININE RATIO 17.9 (10.0-20.0); CALCIUM 9.9 MG/DL (8.5-10.1); CHLORIDE 100 MMOL/L (99-107); CHOLESTEROL 81 MG/DL (0-200); CREATININE 1.45 MG/DL (0.60-1.10); GLUCOSE 124 MG/DL (70-104); HDL CHOLESTEROL 40 MG/DL (35-60); LDL CHOLESTEROL 31 MG/DL (50-100); MAGNESIUM 2.1 MG/DL (1.5-2.4); PHOSPHORUS 2.6 MG/DL (2.3-4.5); SODIUM 136 MMOL/L (135-145); TOTAL CARBON DIOXIDE 26.3 MMOL/L (24-32); TOTAL PROTEIN 8.7 G/DL (6.4-8.2); TRIGLYCERIDES 56 MG/DL (20-135); eCRCL 37 ML/MIN; eGFR 46 ML/MIN
[2023-05-17] MEDS: dabigatran 150mg capsule PO SCH ×2 (08:00→20:30)
[2023-05-17] MEDS: K and/or MAG REPLACEMENT MC SCH ×2 (08:00→20:00)
[2023-05-17] MEDS ORDERED: furosemide 20 MG/2 ML vial IV SCH (08:00)
[2023-05-17] MEDS: methylPREDNISolone sod succ/PF 40mg inj. IV SCH ×3 (08:31→21:00)
[2023-05-17 08:40] LABS: BURR CELLS FEW; ELLIPTOCYTES FEW; PLATELET ESTIMATE DECREASED; TOTAL CELLS COUNTED 100
[2023-05-17] MEDS: CefTRIAXone/D5W-Rocephin 1gm 50 ML IV SCH (09:02)
[2023-05-17] MEDS: ipratropium/albuterol 3ml nebule NEB PRN ×2 (09:16→20:10)
[2023-05-17] MEDS: budesonide 0.5mg/2ml UD nebule IH SCH ×2 (09:16→20:10)
[2023-05-17] MEDS ORDERED: LEVO75TA PO (09:53)
[2023-05-17] MEDS ORDERED: LOSA25TA41 PO (09:55)
[2023-05-17] MEDS ORDERED: POTA-366 PO (09:57)
[2023-05-17] MEDS ORDERED: ATOR10TA PO (10:03)
[2023-05-17] MEDS ORDERED: SEMA14TA2 PO (10:05)
[2023-05-17] MEDS ORDERED: METO-467 PO (10:34)
[2023-05-17] MEDS ORDERED: triamcinolone acet 0.1% cream 15gm TP PRN (18:50)
[2023-05-17] MEDS: metoprolol tartrate 50mg tablet PO SCH (20:30)
[2023-05-17] MEDS: potassium Cl 20 mEq SR tablet PO SCH (20:30)
[2023-05-17] MEDS: pantoprazole 40mg Tablet.DR PO SCH (20:30)
[2023-05-17] MEDS: Melatonin 3mg tablet PO SCH (20:30)
[2023-05-17] MEDS: furosemide 20 MG/2 ML vial IV SCH (20:31)
[2023-05-18] VITALS (15 sets, daily range): BP systolic 89–150; BP diastolic 56–69; PULSE 76–92; RESP 18–24; TEMP 97.4–98.1; O2SAT 86–95
[2023-05-18] MEDS ORDERED: methylPREDNISolone sod succ/PF 40mg inj. IV ONE
[2023-05-18] MEDS: gabapentin 400mg capsule PO SCH ×2 (00:06→07:51)
[2023-05-18 05:04] LABS: BASOPHILS % (AUTO) 0.3 % (0-1); EOSINOPHILS % (AUTO) 0 % (0-6); HEMATOCRIT 41.9 % (42.0-52.0); HEMOGLOBIN 14.1 g/dl (14.0-17.9); LYMPHOCYTES # (AUTO) 0.7 X10'3 (1.1-4.8); LYMPHOCYTES % (AUTO) 11.7 % (21-51); MEAN CORPUSCULAR HEMOGLOBIN 31.1 PG (27.0-31.0); MEAN CORPUSCULAR HGB CONC 33.6 g/dL (33.0-36.5); MEAN CORPUSCULAR VOLUME 92.6 FL (78-98); MEAN PLATELET VOLUME 8.8 FL (7.4-10.4); MONOCYTES # (AUTO) 0.4 X10'3 (0-0.9); MONOCYTES % (AUTO) 6.8 % (2-12); NEUTROPHILS % (AUTO) 81.2 % (42-75); PLATELET COUNT 112 X10'3 (140-440); RED BLOOD COUNT 4.52 X10'6 (4.70-6.10); RED CELL DISTRIBUTION WIDTH 15.1 % (11.5-14.5); WHITE BLOOD COUNT 6.1 X10'3 (4.5-11.0)
[2023-05-18 05:17] LABS: ALANINE AMINOTRANSFERASE 22 U/L (12-78); ALBUMIN 3.4 G/DL (3.4-5.0); ALBUMIN/GLOBULIN RATIO 0.7 (1.1-1.5); ALKALINE PHOSPHATASE 44 IU/L (46-116); ANION GAP 8 (8-16); ASPARTATE AMINO TRANSFERASE 57 U/L (10-37); BILIRUBIN,TOTAL 0.9 MG/DL (0.1-1.0); BLOOD UREA NITROGEN 27 MG/DL (7-18); BUN/CREATININE RATIO 18.9 (10.0-20.0); CALCIUM 10.2 MG/DL (8.5-10.1); CHLORIDE 99 MMOL/L (99-107); CREATININE 1.43 MG/DL (0.60-1.10); GLUCOSE 176 MG/DL (70-104); MAGNESIUM 1.8 MG/DL (1.5-2.4); SODIUM 135 MMOL/L (135-145); TOTAL CARBON DIOXIDE 28.2 MMOL/L (24-32); TOTAL PROTEIN 8.6 G/DL (6.4-8.2); eCRCL 38 ML/MIN; eGFR 47 ML/MIN
[2023-05-18] MEDS: budesonide 0.5mg/2ml UD nebule IH SCH ×2 (07:34→20:28)
[2023-05-18] MEDS: ipratropium/albuterol 3ml nebule NEB PRN (07:34)
[2023-05-18] MEDS: levoTHYROXINE 75mcg tablet PO SCH (07:48)
[2023-05-18] MEDS: furosemide 20 MG/2 ML vial IV SCH ×2 (07:48→20:00)
[2023-05-18] MEDS: potassium Cl 20 mEq SR tablet PO SCH ×3 (07:48→21:24)
[2023-05-18] MEDS: ascorbic acid 500mg tablet PO SCH (07:49)
[2023-05-18] MEDS: duloxetine 30mg CAPSULE.DR PO SCH (07:50)
[2023-05-18] MEDS: atorvastatin 10mg tablet PO SCH (07:50)
[2023-05-18] MEDS: magnesium oxide 400mg tablet PO SCH (07:51)
[2023-05-18] MEDS: cholecalciferol (vitamin D3) 1,000 unit (25mcg) tablet PO SCH (07:51)
[2023-05-18] MEDS: metoprolol tartrate 50mg tablet PO SCH ×2 (07:52→20:00)
[2023-05-18] MEDS: pantoprazole 40mg Tablet.DR PO SCH ×2 (07:52→20:02)
[2023-05-18] MEDS: methylPREDNISolone sod succ/PF 40mg inj. IV SCH ×3 (07:53→21:32)
[2023-05-18] MEDS ORDERED: levoTHYROXINE 75mcg tablet PO SCH (08:00)
[2023-05-18] MEDS: CefTRIAXone/D5W-Rocephin 1gm 50 ML IV SCH (08:00)
[2023-05-18] MEDS: K and/or MAG REPLACEMENT MC SCH ×2 (08:00→20:12)
[2023-05-18] MEDS: dabigatran 150mg capsule PO SCH ×2 (14:20→20:02)
[2023-05-18] MEDS: ipratropium/albuterol 3ml nebule NEB SCH ×2 (15:47→20:28)
[2023-05-18] MEDS ORDERED: HYDROcodone/acetaminophen 10/325mg tab PO PRN (17:05)
[2023-05-18] MEDS: gabapentin 300mg capsule PO SCH (20:02)
[2023-05-18] MEDS: Melatonin 3mg tablet PO SCH (21:24)
[2023-05-19 02:00] VITALS: BP 147/67; PULSE 84; RESP 24; TEMP 97; O2SAT 97
[2023-05-19] MEDS: ipratropium/albuterol 3ml nebule NEB SCH ×2 (03:00→08:51)
[2023-05-19 06:00] VITALS: BP 141/66; PULSE 81; RESP 18; TEMP 99.7; O2SAT 94
[2023-05-19 06:24] LABS: BASOPHILS % (AUTO) 0.4 % (0-1); EOSINOPHILS % (AUTO) 0 % (0-6); HEMATOCRIT 41.4 % (42.0-52.0); HEMOGLOBIN 13.9 g/dl (14.0-17.9); LYMPHOCYTES # (AUTO) 0.8 X10'3 (1.1-4.8); LYMPHOCYTES % (AUTO) 10.7 % (21-51); MEAN CORPUSCULAR HEMOGLOBIN 31.2 PG (27.0-31.0); MEAN CORPUSCULAR HGB CONC 33.5 g/dL (33.0-36.5); MEAN CORPUSCULAR VOLUME 93.3 FL (78-98); MEAN PLATELET VOLUME 9.2 FL (7.4-10.4); MONOCYTES # (AUTO) 0.9 X10'3 (0-0.9); MONOCYTES % (AUTO) 12.4 % (2-12); NEUTROPHILS # (AUTO) 5.8 X10'3 (1.8-7.7); NEUTROPHILS % (AUTO) 76.5 % (42-75); PLATELET COUNT 122 X10'3 (140-440); RED BLOOD COUNT 4.44 X10'6 (4.70-6.10); RED CELL DISTRIBUTION WIDTH 15.2 % (11.5-14.5); WHITE BLOOD COUNT 7.6 X10'3 (4.5-11.0)
[2023-05-19 06:43] LABS: ALANINE AMINOTRANSFERASE 28 U/L (12-78); ALBUMIN 3.2 G/DL (3.4-5.0); ALBUMIN/GLOBULIN RATIO 0.7 (1.1-1.5); ALKALINE PHOSPHATASE 39 IU/L (46-116); ANION GAP 9 (8-16); ASPARTATE AMINO TRANSFERASE 49 U/L (10-37); BILIRUBIN,TOTAL 0.7 MG/DL (0.1-1.0); BLOOD UREA NITROGEN 34 MG/DL (7-18); BUN/CREATININE RATIO 23.4 (10.0-20.0); CALCIUM 10.2 MG/DL (8.5-10.1); CHLORIDE 100 MMOL/L (99-107); CREATININE 1.45 MG/DL (0.60-1.10); GLUCOSE 202 MG/DL (70-104); MAGNESIUM 1.9 MG/DL (1.5-2.4); PHOSPHORUS 2.8 MG/DL (2.3-4.5); POTASSIUM 4.7 MMOL/L (3.5-5.1); SODIUM 137 MMOL/L (135-145); TOTAL CARBON DIOXIDE 28.2 MMOL/L (24-32); eCRCL 37 ML/MIN; eGFR 46 ML/MIN
[2023-05-19 08:00] VITALS: RESP 18; O2SAT 93
[2023-05-19] MEDS: methylPREDNISolone sod succ/PF 40mg inj. IV SCH (08:19)
[2023-05-19] MEDS: ascorbic acid 500mg tablet PO SCH (08:20)
[2023-05-19] MEDS: cholecalciferol (vitamin D3) 1,000 unit (25mcg) tablet PO SCH (08:20)
[2023-05-19] MEDS: levoTHYROXINE 75mcg tablet PO SCH (08:20)
[2023-05-19] MEDS: furosemide 20 MG/2 ML vial IV SCH (08:20)
[2023-05-19] MEDS: dabigatran 150mg capsule PO SCH (08:20)
[2023-05-19] MEDS: atorvastatin 10mg tablet PO SCH (08:21)
[2023-05-19] MEDS: gabapentin 300mg capsule PO SCH (08:22)
[2023-05-19] MEDS: duloxetine 30mg CAPSULE.DR PO SCH (08:23)
[2023-05-19] MEDS: magnesium oxide 400mg tablet PO SCH (08:23)
[2023-05-19] MEDS: potassium Cl 20 mEq SR tablet PO SCH (08:25)
[2023-05-19] MEDS: metoprolol tartrate 50mg tablet PO SCH (08:25)
[2023-05-19] MEDS: CefTRIAXone/D5W-Rocephin 1gm 50 ML IV SCH (08:26)
[2023-05-19] MEDS: budesonide 0.5mg/2ml UD nebule IH SCH (08:51)
[2023-05-19 08:54] VITALS: PULSE 85; RESP 18; O2SAT 93
[2023-05-19 09:03] VITALS: PULSE 83; RESP 18
[2023-05-19 11:00] VITALS: BP 135/68; PULSE 82; RESP 18; TEMP 97.8; O2SAT 91
[2023-05-19] MEDS ORDERED: DABI150C PO (12:00)
[2023-05-19] MEDS ORDERED: ALBU90AE INH (12:35)
[2023-05-19] MEDS ORDERED: FLUT1BLS13 INH (12:35)
[2023-05-19] MEDS ORDERED: PRE1T PO ×2 (12:35)
[2023-05-19] MEDS ORDERED: AMOX-419 PO (12:35)
[2023-05-19] MEDS ORDERED: PRED10TA23 PO (12:38)
== END 2023-05-19 14:51 | disposition home health service (06) | DRG 193 ==
LOC: ER 10:35 → ED HOLD 14:53 → PCU 3S 22:43
PROVIDERS: ADMIT Family Medicine; ATTEND Family Medicine
PROC: 5A09357 Assistance with Respiratory Ventilation, Less than 24 Consecutive Hours, Continuous Positive Airway Pressure (ICD-10-PCS; principal; 2023-05-16)
PROC: 5A09357 Assistance with Respiratory Ventilation, Less than 24 Consecutive Hours, Continuous Positive Airway Pressure (ICD-10-PCS; 2023-05-17)
DX: J18.9 Pneumonia, unspecified organism (principal); I50.33 Acute on chronic diastolic (congestive) heart failure; J96.21 Acute and chronic respiratory failure with hypoxia; J44.0 Chronic obstructive pulmonary disease with (acute) lower respiratory infection; J44.1 Chronic obstructive pulmonary disease with (acute) exacerbation; M02.30 Reiter's disease, unspecified site; K50.90 Crohn's disease, unspecified, without complications; Z66 Do not resuscitate; N40.0 Benign prostatic hyperplasia without lower urinary tract symptoms; E03.9 Hypothyroidism, unspecified; F31.9 Bipolar disorder, unspecified; F41.9 Anxiety disorder, unspecified; E78.00 Pure hypercholesterolemia, unspecified; I25.10 Atherosclerotic heart disease of native coronary artery without angina pectoris; Z20.822 Contact with and (suspected) exposure to COVID-19; I11.0 Hypertensive heart disease with heart failure; L40.9 Psoriasis, unspecified; I27.20 Pulmonary hypertension, unspecified; Z86.73 Personal history of transient ischemic attack (TIA), and cerebral infarction without residual deficits; Z95.0 Presence of cardiac pacemaker; Z90.49 Acquired absence of other specified parts of digestive tract; Z79.899 Other long term (current) drug therapy; Z95.5 Presence of coronary angioplasty implant and graft; Z86.711 Personal history of pulmonary embolism; Z87.891 Personal history of nicotine dependence; Z88.2 Allergy status to sulfonamides
CPT/HCPCS: 36415; 36600; 71045; 80053; 80061; 81001; 82803; 83036; 83605; 83735; 83880; 84100; 84443; 84484; 85007; 85018; 85025; 87040; 87081; 87088; 87502; 87503; 93005; 93306; 94640; 94660; 94760; 97161; 97530; 99285; A6212; A6250; G0378; J0456; J0696; J1940; J2920; J2930; J3475; J7030

== ENCOUNTER 2024-01-19 09:41 | Inpatient (IN) | payer MEDICARE, BC ==
[~2024-01-19] VITALS: Ht 175.3 cm; Wt 115.5 kg
[~2024-01-19 09:41] MED LIST changes: +ALBU90AE INH; +ATOR10TA PO; +DABI150C PO; +FLUT1BLS13 INH; -LEVO50TA8 PO; +LEVO75TA PO; +LOSA25TA41 PO; +METO-467 PO; +POTA-366 PO
[2024-01-19 10:45] LABS: BASOPHILS % (AUTO) 1.1 % (0-1); EOSINOPHILS # (AUTO) 0.2 X10'3 (0-0.9); EOSINOPHILS % (AUTO) 6.6 % (0-6); HEMATOCRIT 29.1 % (42.0-52.0); HEMOGLOBIN 9.6 g/dl (14.0-17.9); LYMPHOCYTES # (AUTO) 0.8 X10'3 (1.1-4.8); LYMPHOCYTES % (AUTO) 22.5 % (21-51); MEAN CORPUSCULAR VOLUME 93.7 FL (78-98); MEAN PLATELET VOLUME 8.4 FL (7.4-10.4); MONOCYTES # (AUTO) 0.4 X10'3 (0-0.9); NEUTROPHILS # (AUTO) 2.1 X10'3 (1.8-7.7); NEUTROPHILS % (AUTO) 58.8 % (42-75); PLATELET COUNT 142 X10'3 (140-440); RED CELL DISTRIBUTION WIDTH 14.8 % (11.5-14.5); WHITE BLOOD COUNT 3.5 X10'3 (4.5-11.0)
[2024-01-19 11:06] LABS: ALANINE AMINOTRANSFERASE 16 U/L (12-78); ALBUMIN 3.2 G/DL (3.4-5.0); ALBUMIN/GLOBULIN RATIO 0.8 (1.1-1.5); ALKALINE PHOSPHATASE 33 IU/L (46-116); ANION GAP 5 (8-16); ASPARTATE AMINO TRANSFERASE 17 U/L (10-37); BILIRUBIN,TOTAL 0.8 MG/DL (0.1-1.0); BLOOD UREA NITROGEN 34 MG/DL (7-18); BUN/CREATININE RATIO 18.8 (10.0-20.0); CALCIUM 9.4 MG/DL (8.5-10.1); CHLORIDE 104 MMOL/L (99-107); CREATININE 1.81 MG/DL (0.60-1.10); GLUCOSE 175 MG/DL (70-104); SODIUM 140 MMOL/L (135-145); TOTAL CARBON DIOXIDE 30.8 MMOL/L (24-32); TOTAL PROTEIN 7.1 G/DL (6.4-8.2); eCRCL 30 ML/MIN; eGFR 36 ML/MIN
[2024-01-19 11:13] LABS: PRO BRAIN NATRIURETIC PEPTIDE 1787 PG/ML (0-450)
[2024-01-19 11:30] VITALS: PULSE 63; RESP 19; O2SAT 98
[2024-01-19] MEDS: ipratropium/albuterol 3ml nebule NEB ONE (11:30)
[2024-01-19 11:35] VITALS: PULSE 52; RESP 15; O2SAT 100
[2024-01-19 11:44] LABS: BILIRUBIN,URINE NEGATIVE (Neg); CLARITY,URINE CLEAR (Clear); COLOR,URINE YELLOW (Yellow); GLUCOSE, URINE NEGATIVE (Neg); KETONES,URINE NEGATIVE (Neg); LEUKOCYTE ESTERASE ,URINE TRACE (Neg); NITRITES, URINE NEGATIVE (Neg); OCCULT BLOOD,URINE NEGATIVE (Neg); PROTEIN,URINE NEGATIVE (Neg)
[2024-01-19 11:46] LABS: UA COLLECTION TYPE CLN CATCH MIDSTREAM
[2024-01-19 12:01] LABS: BACTERIA,URINE FEW /HPF (Neg); MUCUS STRANDS NONE SEEN /LPF (Neg); RBC,URINE 0-2 /HPF (0-2); SQUAMOUS EPITHELIAL CELL,UR MODERATE /LPF (FEW); TRANSITIONAL EPI CELLS,URINE FEW /HPF; WBC CLUMPS,URINE FEW /HPF (NEGATIVE)
[2024-01-19 12:09] LABS: % IRON SATURATION 13 % (11-46); IRON 57 UG/DL (53-167); TOTAL IRON BINDING CAPACITY 447 UG/DL (259-388)
[2024-01-19] MEDS: furosemide 10 MG/1 ML 10ml inj IV ONE (12:25)
[2024-01-19] MEDS: HYDROcodone/acetaminophen 10/325mg tab PO ONE (12:26)
[2024-01-19] MEDS ORDERED: mag hydrox/Alum hydrox/simeth 30ml oral suspension PO PRN (12:30)
[2024-01-19] MEDS ORDERED: ondansetron/PF 4mg/2ml inj IV PRN (12:30)
[2024-01-19] MEDS ORDERED: acetaminophen 325mg tablet PO PRN (12:30)
[2024-01-19] MEDS ORDERED: potassium Cl 40MEQ/1/2NS 520ml 520 ML IV PRN (12:30)
[2024-01-19] MEDS ORDERED: magnesium Cl slow-release 64mg tablet PO PRN (12:30)
[2024-01-19] MEDS: PERFLUTREN PROTEIN-A MICROSPHR (Optison) 0.22 MG/ML 3ML VIAL IV ONE (12:30)
[2024-01-19] MEDS ORDERED: magnesium sulf-water 4G/100mL 100 ML IV PRN (12:30)
[2024-01-19] MEDS ORDERED: magnesium hydroxide 30ml (MOM) UD suspension PO PRN (12:30)
[2024-01-19] MEDS ORDERED: potassium Cl 20 mEq SR tablet PO PRN ×2 (12:30)
[2024-01-19] MEDS ORDERED: magnesium sulf-water 2g/50mL 50 ML IV PRN (12:30)
[2024-01-19] MEDS ORDERED: glucagon, human recombinant 1mg kit SUBCUT PRN (12:50)
[2024-01-19] MEDS ORDERED: DEXTROSE 15 GM of carb/4 tabs (each vial/BOTTLE has 4 tablets) PO PRN ×2 (12:50)
[2024-01-19] MEDS ORDERED: dextrose 50%-water 50ml dispensing syringe IV PRN ×2 (12:50)
[2024-01-19] MEDS ORDERED: ipratropium/albuterol 3ml nebule NEB PRN (12:50)
[2024-01-19 13:07] LABS: MAGNESIUM 1.6 MG/DL (1.5-2.4); POTASSIUM 4.1 MMOL/L (3.5-5.1)
[2024-01-19 13:10] LABS: APTT 34 SECONDS (22-32); INR 1.4 INR
[2024-01-19 13:27] LABS: OCCULT BLOOD STOOL POSITIVE (Neg)
[2024-01-19] MEDS: pantoprazole 40 MG vial IV SCH ×2 (13:46→20:13)
[2024-01-19] MEDS: INSULIN LISPRO 100 UNIT/ML INSULN.PEN MULTI-DOSE SQ SCH (17:00)
[2024-01-19 17:06] LABS: HEMATOCRIT 27.6 % (42.0-52.0); HEMOGLOBIN 9.2 g/dl (14.0-17.9); MEAN CORPUSCULAR HEMOGLOBIN 30.9 PG (27.0-31.0); MEAN CORPUSCULAR HGB CONC 33.3 g/dL (33.0-36.5); MEAN CORPUSCULAR VOLUME 92.9 FL (78-98); MEAN PLATELET VOLUME 8.3 FL (7.4-10.4); PLATELET COUNT 133 X10'3 (140-440); RED BLOOD COUNT 2.97 X10'6 (4.70-6.10); RED CELL DISTRIBUTION WIDTH 14.4 % (11.5-14.5); WHITE BLOOD COUNT 3.5 X10'3 (4.5-11.0)
[2024-01-19] MEDS ORDERED: ATOR10TA PO (17:14)
[2024-01-19] MEDS ORDERED: PANT20TA18 PO (17:16)
[2024-01-19] MEDS ORDERED: DABI150C PO (17:18)
[2024-01-19] MEDS ORDERED: DULO60CA65 PO (17:21)
[2024-01-19] MEDS ORDERED: ASCO100031 PO (17:25)
[2024-01-19] MEDS ORDERED: GABA-535 PO (17:32)
[2024-01-19 17:34] VITALS: PULSE 60; RESP 16; O2SAT 98
[2024-01-19] MEDS ORDERED: NITR0.4T SL (17:34)
[2024-01-19] MEDS ORDERED: MAGN400C PO (17:38)
[2024-01-19] MEDS ORDERED: BUDE10.22 INH (17:43)
[2024-01-19] MEDS ORDERED: LEVO100T9 PO (17:48)
[2024-01-19] MEDS ORDERED: HYDR-3973 PO (17:52)
[2024-01-19] MEDS ORDERED: BUME2TAB7 PO (17:55)
[2024-01-19] MEDS ORDERED: BUME0.5T6 PO (17:56)
[2024-01-19] MEDS ORDERED: ATOR10TA70 PO ×2 (17:57→17:58)
[2024-01-19] MEDS ORDERED: ISOSORBIDE MONO PO (18:13)
[2024-01-19] MEDS ORDERED: ISOS60TA71 PO (18:16)
[2024-01-19 18:52] VITALS: PULSE 60; RESP 16; O2SAT 90
[2024-01-19] MEDS ORDERED: triamcinolone acet 0.1% cream 15gm TP PRN (18:55)
[2024-01-19] MEDS: normal saline 1000ml 1,000 ML IV SCH (19:38)
[2024-01-19] MEDS: atorvastatin 10mg tablet PO SCH (19:52)
[2024-01-19] MEDS: metoprolol tartrate 50mg tablet PO SCH (19:54)
[2024-01-19 20:00] VITALS: RESP 18; O2SAT 100
[2024-01-19] MEDS: K and/or MAG REPLACEMENT MC SCH (20:00)
[2024-01-19] MEDS ORDERED: METF-900 PO (20:23)
[2024-01-19 21:00] VITALS: BP 118/55; PULSE 60; RESP 18; TEMP 97.7; O2SAT 100
[2024-01-19] MEDS: magnesium oxide 400mg tablet PO SCH (21:50)
[2024-01-19] MEDS: duloxetine 30mg CAPSULE.DR PO SCH (21:50)
[2024-01-19] MEDS: gabapentin 400mg capsule PO PRN (21:50)
[2024-01-19] MEDS: ascorbic acid 500mg tablet PO SCH (21:50)
[2024-01-19] MEDS: morphine 2 MG/ML inj. syringe IV PRN (22:19)
[2024-01-19 22:56] LABS: HEMATOCRIT 28.4 % (42.0-52.0); HEMOGLOBIN 9.4 g/dl (14.0-17.9); MEAN CORPUSCULAR HEMOGLOBIN 31.2 PG (27.0-31.0); MEAN CORPUSCULAR HGB CONC 33.3 g/dL (33.0-36.5); MEAN CORPUSCULAR VOLUME 93.7 FL (78-98); MEAN PLATELET VOLUME 8.2 FL (7.4-10.4); PLATELET COUNT 135 X10'3 (140-440); RED BLOOD COUNT 3.03 X10'6 (4.70-6.10); RED CELL DISTRIBUTION WIDTH 14.6 % (11.5-14.5); WHITE BLOOD COUNT 3.9 X10'3 (4.5-11.0)
[2024-01-19] MEDS: insulin glargine (Lantus) pen - multi-dose SQ SCH (23:10)
[2024-01-20] VITALS (10 sets, daily range): BP systolic 116–128; BP diastolic 40–81; PULSE 58–68; RESP 14–18; TEMP 97.2–98; O2SAT 94–100
[2024-01-20] MEDS: acetaminophen 325mg tablet PO PRN (00:13)
[2024-01-20 07:47] LABS: BASOPHILS % (AUTO) 0.6 % (0-1); EOSINOPHILS # (AUTO) 0.2 X10'3 (0-0.9); EOSINOPHILS % (AUTO) 6.1 % (0-6); HEMATOCRIT 27.3 % (42.0-52.0); HEMOGLOBIN 9.1 g/dl (14.0-17.9); LYMPHOCYTES # (AUTO) 0.9 X10'3 (1.1-4.8); LYMPHOCYTES % (AUTO) 23.6 % (21-51); MEAN CORPUSCULAR HGB CONC 33.1 g/dL (33.0-36.5); MEAN CORPUSCULAR VOLUME 93.5 FL (78-98); MEAN PLATELET VOLUME 8.7 FL (7.4-10.4); MONOCYTES # (AUTO) 0.6 X10'3 (0-0.9); NEUTROPHILS % (AUTO) 54.7 % (42-75); PLATELET COUNT 130 X10'3 (140-440); RED BLOOD COUNT 2.92 X10'6 (4.70-6.10); WHITE BLOOD COUNT 3.7 X10'3 (4.5-11.0)
[2024-01-20] MEDS ORDERED: BUMETANIDE PO SCH (08:00)
[2024-01-20] MEDS ORDERED: non-formulary drug (Pantoprazole Sodium (Protonix) 1 TAB) PO SCH (08:00)
[2024-01-20 08:17] LABS: ALANINE AMINOTRANSFERASE 13 U/L (12-78); ALBUMIN 3.1 G/DL (3.4-5.0); ALBUMIN/GLOBULIN RATIO 0.8 (1.1-1.5); ALKALINE PHOSPHATASE 31 IU/L (46-116); ANION GAP 6 (8-16); ASPARTATE AMINO TRANSFERASE 17 U/L (10-37); BILIRUBIN,TOTAL 0.9 MG/DL (0.1-1.0); BLOOD UREA NITROGEN 33 MG/DL (7-18); BUN/CREATININE RATIO 19.3 (10.0-20.0); CALCIUM 8.8 MG/DL (8.5-10.1); CHLORIDE 105 MMOL/L (99-107); CHOLESTEROL 71 MG/DL (0-200); CREATININE 1.71 MG/DL (0.60-1.10); GLUCOSE 94 MG/DL (70-104); HDL CHOLESTEROL 35 MG/DL (35-60); LDL CHOLESTEROL 31 MG/DL (50-100); MAGNESIUM 1.8 MG/DL (1.5-2.4); POTASSIUM 3.7 MMOL/L (3.5-5.1); SODIUM 141 MMOL/L (135-145); TOTAL CARBON DIOXIDE 29.8 MMOL/L (24-32); TOTAL PROTEIN 7.1 G/DL (6.4-8.2); TRIGLYCERIDES 66 MG/DL (20-135); eCRCL 32 ML/MIN; eGFR 38 ML/MIN
[2024-01-20] MEDS: cholecalciferol (vitamin D3) 1,000 unit (25mcg) tablet PO SCH (08:38)
[2024-01-20] MEDS: fenofibrate 48mg tablet PO SCH (08:39)
[2024-01-20] MEDS: bumetanide 1mg tablet PO SCH (08:46)
[2024-01-20] MEDS: levoTHYROXINE 100mcg tablet PO SCH (08:46)
[2024-01-20] MEDS: isosorbide mononitrate 30mg tab.SR.24H PO SCH (10:21)
[2024-01-20 11:16] LABS: HEMATOCRIT 29.3 % (42.0-52.0); HEMOGLOBIN 9.5 g/dl (14.0-17.9); MEAN CORPUSCULAR HEMOGLOBIN 30.6 PG (27.0-31.0); MEAN CORPUSCULAR HGB CONC 32.3 g/dL (33.0-36.5); MEAN CORPUSCULAR VOLUME 94.8 FL (78-98); MEAN PLATELET VOLUME 8.9 FL (7.4-10.4); PLATELET COUNT 143 X10'3 (140-440); RED BLOOD COUNT 3.09 X10'6 (4.70-6.10); RED CELL DISTRIBUTION WIDTH 14.7 % (11.5-14.5)
[2024-01-20] MEDS ORDERED: gabapentin 400mg capsule PO PRN (12:16)
[2024-01-20] MEDS: morphine 2 MG/ML inj. syringe IV PRN (12:49)
[2024-01-20 16:42] LABS: HEMATOCRIT 28.5 % (42.0-52.0); HEMOGLOBIN 9.4 g/dl (14.0-17.9); MEAN CORPUSCULAR HEMOGLOBIN 30.8 PG (27.0-31.0); MEAN CORPUSCULAR VOLUME 93.4 FL (78-98); MEAN PLATELET VOLUME 8.4 FL (7.4-10.4); PLATELET COUNT 130 X10'3 (140-440); RED BLOOD COUNT 3.05 X10'6 (4.70-6.10); RED CELL DISTRIBUTION WIDTH 14.3 % (11.5-14.5); WHITE BLOOD COUNT 3.8 X10'3 (4.5-11.0)
[2024-01-21] VITALS (9 sets, daily range): BP systolic 118–124; BP diastolic 42–68; PULSE 66–74; RESP 14–16; TEMP 97.1–98; O2SAT 94–99
[2024-01-21 07:20] LABS: BASOPHILS % (AUTO) 0.5 % (0-1); EOSINOPHILS # (AUTO) 0.2 X10'3 (0-0.9); EOSINOPHILS % (AUTO) 5.7 % (0-6); HEMATOCRIT 29.4 % (42.0-52.0); HEMOGLOBIN 9.7 g/dl (14.0-17.9); LYMPHOCYTES # (AUTO) 0.9 X10'3 (1.1-4.8); LYMPHOCYTES % (AUTO) 20.8 % (21-51); MEAN CORPUSCULAR HEMOGLOBIN 30.7 PG (27.0-31.0); MEAN CORPUSCULAR HGB CONC 32.8 g/dL (33.0-36.5); MEAN CORPUSCULAR VOLUME 93.5 FL (78-98); MEAN PLATELET VOLUME 8.6 FL (7.4-10.4); MONOCYTES # (AUTO) 0.5 X10'3 (0-0.9); NEUTROPHILS # (AUTO) 2.5 X10'3 (1.8-7.7); PLATELET COUNT 132 X10'3 (140-440); RED BLOOD COUNT 3.15 X10'6 (4.70-6.10); RED CELL DISTRIBUTION WIDTH 14.6 % (11.5-14.5); WHITE BLOOD COUNT 4.2 X10'3 (4.5-11.0)
[2024-01-21 07:46] LABS: ALANINE AMINOTRANSFERASE 13 U/L (12-78); ALBUMIN 3.3 G/DL (3.4-5.0); ALBUMIN/GLOBULIN RATIO 0.8 (1.1-1.5); ALKALINE PHOSPHATASE 33 IU/L (46-116); ANION GAP 6 (8-16); ASPARTATE AMINO TRANSFERASE 22 U/L (10-37); BILIRUBIN,TOTAL 1.2 MG/DL (0.1-1.0); BLOOD UREA NITROGEN 23 MG/DL (7-18); BUN/CREATININE RATIO 14.4 (10.0-20.0); CALCIUM 9.1 MG/DL (8.5-10.1); CHLORIDE 104 MMOL/L (99-107); GLUCOSE 103 MG/DL (70-104); MAGNESIUM 1.9 MG/DL (1.5-2.4); POTASSIUM 3.5 MMOL/L (3.5-5.1); SODIUM 139 MMOL/L (135-145); TOTAL CARBON DIOXIDE 29.5 MMOL/L (24-32); TOTAL PROTEIN 7.4 G/DL (6.4-8.2); eCRCL 34 ML/MIN; eGFR 41 ML/MIN
[2024-01-21] MEDS: lactobacillus rhamnosus 10,000 MMU CELLS/CAPSULE PO SCH (08:48)
[2024-01-21] MEDS: CefTRIAXone/D5W-Rocephin 1gm 50 ML IV SCH (10:18)
[2024-01-21] MEDS: aspirin 81mg, enteric-coated 1 TAB TABLET.DR PO SCH (14:10)
[2024-01-21] MEDS: normal saline 1000ml 1,000 ML IV SCH (14:35)
[2024-01-21] MEDS: gabapentin 300mg capsule PO PRN (20:08)
[2024-01-22] VITALS (7 sets, daily range): BP systolic 96–133; BP diastolic 40–82; PULSE 60–110; RESP 12–20; TEMP 97–98.2; O2SAT 90–100
[2024-01-22] MEDS: nitroGLYCERIN 0.4mg SUBLingual tab SL PRN (04:08)
[2024-01-22 05:26] LABS: BASOPHILS % (AUTO) 0.6 % (0-1); EOSINOPHILS # (AUTO) 0.2 X10'3 (0-0.9); EOSINOPHILS % (AUTO) 3.9 % (0-6); HEMATOCRIT 28.3 % (42.0-52.0); HEMOGLOBIN 9.2 g/dl (14.0-17.9); LYMPHOCYTES # (AUTO) 0.8 X10'3 (1.1-4.8); LYMPHOCYTES % (AUTO) 18.7 % (21-51); MEAN CORPUSCULAR HEMOGLOBIN 30.1 PG (27.0-31.0); MEAN CORPUSCULAR HGB CONC 32.4 g/dL (33.0-36.5); MEAN CORPUSCULAR VOLUME 93.1 FL (78-98); MEAN PLATELET VOLUME 8.8 FL (7.4-10.4); MONOCYTES # (AUTO) 0.6 X10'3 (0-0.9); MONOCYTES % (AUTO) 14.8 % (2-12); NEUTROPHILS # (AUTO) 2.6 X10'3 (1.8-7.7); PLATELET COUNT 120 X10'3 (140-440); RED BLOOD COUNT 3.04 X10'6 (4.70-6.10); RED CELL DISTRIBUTION WIDTH 14.3 % (11.5-14.5); WHITE BLOOD COUNT 4.2 X10'3 (4.5-11.0)
[2024-01-22 05:51] LABS: ALANINE AMINOTRANSFERASE 11 U/L (12-78); ALBUMIN 3.1 G/DL (3.4-5.0); ALBUMIN/GLOBULIN RATIO 0.8 (1.1-1.5); ALKALINE PHOSPHATASE 30 IU/L (46-116); ANION GAP 7 (8-16); ASPARTATE AMINO TRANSFERASE 21 U/L (10-37); BILIRUBIN,TOTAL 1.2 MG/DL (0.1-1.0); BLOOD UREA NITROGEN 17 MG/DL (7-18); BUN/CREATININE RATIO 11.1 (10.0-20.0); CALCIUM 8.9 MG/DL (8.5-10.1); CHLORIDE 105 MMOL/L (99-107); CREATININE 1.53 MG/DL (0.60-1.10); GLUCOSE 107 MG/DL (70-104); MAGNESIUM 1.9 MG/DL (1.5-2.4); POTASSIUM 3.4 MMOL/L (3.5-5.1); SODIUM 140 MMOL/L (135-145); THYROID STIMULATING HORMONE 1.65 ulU/ml (0.34-4.50); TOTAL CARBON DIOXIDE 28.4 MMOL/L (24-32); TOTAL PROTEIN 6.9 G/DL (6.4-8.2); eCRCL 36 ML/MIN; eGFR 44 ML/MIN
[2024-01-22] MEDS ORDERED: potassium Cl 40MEQ/1/2NS 520ml 520 ML IV PRN (16:50)
[2024-01-22] MEDS ORDERED: potassium Cl 20 mEq SR tablet PO PRN (16:50)
[2024-01-22] MEDS: PEG 3350/Na sulf,bicarb,Cl/KCl oral sol 4 liter bottle PO ONE (17:15)
[2024-01-22] MEDS: potassium Cl 20 mEq SR tablet PO PRN (20:05)
[2024-01-22] MEDS: gabapentin 300mg capsule PO SCH (20:07)
[2024-01-23] VITALS (19 sets, daily range): BP systolic 120–141; BP diastolic 46–84; PULSE 57–76; RESP 14–22; TEMP 97.9–98.1; O2SAT 18–100
[2024-01-23 04:47] LABS: BASOPHILS % (AUTO) 0.6 % (0-1); EOSINOPHILS # (AUTO) 0.1 X10'3 (0-0.9); EOSINOPHILS % (AUTO) 3.4 % (0-6); HEMATOCRIT 27.2 % (42.0-52.0); HEMOGLOBIN 8.9 g/dl (14.0-17.9); LYMPHOCYTES # (AUTO) 0.8 X10'3 (1.1-4.8); LYMPHOCYTES % (AUTO) 19.1 % (21-51); MEAN CORPUSCULAR HEMOGLOBIN 30.4 PG (27.0-31.0); MEAN CORPUSCULAR HGB CONC 32.7 g/dL (33.0-36.5); MEAN PLATELET VOLUME 8.1 FL (7.4-10.4); MONOCYTES # (AUTO) 0.6 X10'3 (0-0.9); MONOCYTES % (AUTO) 14.5 % (2-12); NEUTROPHILS # (AUTO) 2.6 X10'3 (1.8-7.7); NEUTROPHILS % (AUTO) 62.4 % (42-75); PLATELET COUNT 117 X10'3 (140-440); RED BLOOD COUNT 2.92 X10'6 (4.70-6.10); RED CELL DISTRIBUTION WIDTH 14.3 % (11.5-14.5); WHITE BLOOD COUNT 4.1 X10'3 (4.5-11.0)
[2024-01-23 05:04] LABS: ALANINE AMINOTRANSFERASE 9 U/L (12-78); ALBUMIN 3.1 G/DL (3.4-5.0); ALBUMIN/GLOBULIN RATIO 0.8 (1.1-1.5); ALKALINE PHOSPHATASE 32 IU/L (46-116); ANION GAP 8 (8-16); ASPARTATE AMINO TRANSFERASE 22 U/L (10-37); BILIRUBIN,TOTAL 1.2 MG/DL (0.1-1.0); BLOOD UREA NITROGEN 13 MG/DL (7-18); BUN/CREATININE RATIO 9.4 (10.0-20.0); CHLORIDE 105 MMOL/L (99-107); CREATININE 1.39 MG/DL (0.60-1.10); GLUCOSE 106 MG/DL (70-104); MAGNESIUM 1.8 MG/DL (1.5-2.4); POTASSIUM 3.3 MMOL/L (3.5-5.1); SODIUM 141 MMOL/L (135-145); TOTAL CARBON DIOXIDE 28.3 MMOL/L (24-32); eCRCL 40 ML/MIN; eGFR 49 ML/MIN
[2024-01-23] MEDS ORDERED: fentaNYL/PF 50MCG/1 ML 2ML syringe ONE (14:10)
[2024-01-23] MEDS ORDERED: MIDAZolam 1 MG/ML 5ML VIAL ONE (14:10)
[2024-01-23] MEDS ORDERED: diphenhydrAMINE 50 mg/ml inj ONE (14:13)
[2024-01-24 04:18] LABS: BASOPHILS % (AUTO) 0.9 % (0-1); EOSINOPHILS # (AUTO) 0.2 X10'3 (0-0.9); EOSINOPHILS % (AUTO) 3.5 % (0-6); HEMATOCRIT 26.7 % (42.0-52.0); HEMOGLOBIN 8.6 g/dl (14.0-17.9); LYMPHOCYTES % (AUTO) 20.5 % (21-51); MEAN CORPUSCULAR HEMOGLOBIN 30.3 PG (27.0-31.0); MEAN CORPUSCULAR HGB CONC 32.4 g/dL (33.0-36.5); MEAN CORPUSCULAR VOLUME 93.5 FL (78-98); MEAN PLATELET VOLUME 8.7 FL (7.4-10.4); MONOCYTES # (AUTO) 0.7 X10'3 (0-0.9); NEUTROPHILS # (AUTO) 2.9 X10'3 (1.8-7.7); NEUTROPHILS % (AUTO) 61.1 % (42-75); PLATELET COUNT 131 X10'3 (140-440); RED BLOOD COUNT 2.85 X10'6 (4.70-6.10); RED CELL DISTRIBUTION WIDTH 14.9 % (11.5-14.5); WHITE BLOOD COUNT 4.8 X10'3 (4.5-11.0)
[2024-01-24 04:35] LABS: ALANINE AMINOTRANSFERASE 8 U/L (12-78); ALBUMIN 3.3 G/DL (3.4-5.0); ALBUMIN/GLOBULIN RATIO 0.8 (1.1-1.5); ALKALINE PHOSPHATASE 35 IU/L (46-116); ANION GAP 8 (8-16); ASPARTATE AMINO TRANSFERASE 24 U/L (10-37); BILIRUBIN,TOTAL 1.1 MG/DL (0.1-1.0); BLOOD UREA NITROGEN 13 MG/DL (7-18); BUN/CREATININE RATIO 10.1 (10.0-20.0); CALCIUM 9.2 MG/DL (8.5-10.1); CHLORIDE 106 MMOL/L (99-107); CREATININE 1.29 MG/DL (0.60-1.10); GLUCOSE 103 MG/DL (70-104); POTASSIUM 3.8 MMOL/L (3.5-5.1); SODIUM 141 MMOL/L (135-145); TOTAL CARBON DIOXIDE 26.7 MMOL/L (24-32); TOTAL PROTEIN 7.4 G/DL (6.4-8.2); eCRCL 43 ML/MIN; eGFR 53 ML/MIN
[2024-01-24 06:00] VITALS: BP 126/45; PULSE 60; RESP 18; TEMP 97.8; O2SAT 98
[2024-01-24 07:54] VITALS: BP_SYST 126
[2024-01-24 11:43] VITALS: PULSE 60; RESP 18; O2SAT 97
[2024-01-24] MEDS ORDERED: PANT40TA54 PO (14:51)
[2024-01-24] MEDS ORDERED: PANT-47 PO (14:51)
[2024-12-22] MEDS ORDERED: simethicone 40mg/0.6ml oral drops 30ml ONE (11:35)
== END 2024-01-24 15:10 | disposition home or self-care (01) | DRG 378 ==
LOC: ER 09:42 → ED HOLD 12:02 → EDBEDREQ 20:09 → ORTHO 4S 20:30 → SUR 3N 01-21 17:58
PROVIDERS: ADMIT Family Medicine; ATTEND Family Medicine
PROC: 0DBN8ZZ Excision of Sigmoid Colon, Via Natural or Artificial Opening Endoscopic (ICD-10-PCS; principal; 2024-01-23)
DX: K92.2 Gastrointestinal hemorrhage, unspecified (principal); D61.818 Other pancytopenia; I13.0 Hypertensive heart and chronic kidney disease with heart failure and stage 1 through stage 4 chronic kidney disease, or unspecified chronic kidney disease; J96.10 Chronic respiratory failure, unspecified whether with hypoxia or hypercapnia; N39.0 Urinary tract infection, site not specified; I48.20 Chronic atrial fibrillation, unspecified; K50.90 Crohn's disease, unspecified, without complications; I50.32 Chronic diastolic (congestive) heart failure; N17.8 Other acute kidney failure; D12.5 Benign neoplasm of sigmoid colon; J44.9 Chronic obstructive pulmonary disease, unspecified; F41.9 Anxiety disorder, unspecified; F32.9 Major depressive disorder, single episode, unspecified; K64.8 Other hemorrhoids; Z66 Do not resuscitate; D72.819 Decreased white blood cell count, unspecified; E78.00 Pure hypercholesterolemia, unspecified; I25.10 Atherosclerotic heart disease of native coronary artery without angina pectoris; E11.22 Type 2 diabetes mellitus with diabetic chronic kidney disease; N18.30 Chronic kidney disease, stage 3 unspecified; Z90.49 Acquired absence of other specified parts of digestive tract; Z87.891 Personal history of nicotine dependence; Z86.711 Personal history of pulmonary embolism; Z88.2 Allergy status to sulfonamides; Z79.899 Other long term (current) drug therapy; Z86.73 Personal history of transient ischemic attack (TIA), and cerebral infarction without residual deficits; Z95.0 Presence of cardiac pacemaker; Z79.84 Long term (current) use of oral hypoglycemic drugs; T45.515A Adverse effect of anticoagulants, initial encounter; Y92.9 Unspecified place or not applicable; K57.30 Diverticulosis of large intestine without perforation or abscess without bleeding
CPT/HCPCS: 36415; 45385; 71045; 80053; 80061; 81001; 82272; 82948; 83036; 83540; 83550; 83735; 83880; 84132; 84443; 84484; 85025; 85027; 85610; 85730; 86870; 86885; 86900; 86901; 86902; 86922; 87081; 87088; 88305; 93005; 93306; 94640; 94760; 97116; 97161; 97530; 99152; 99285; A4615; A4620; A6250; C1889; G0378; J0696; J1200; J1815; J1940; J2250; J2270; J2470; J3010; J7030

== ENCOUNTER 2024-04-30 11:13 | Inpatient (IN) | payer MEDICARE, BC ==
[~2024-04-30] VITALS: Ht 177.8 cm; Wt 119.1 kg
[~2024-04-30 11:13] MED LIST changes: -ALBU90AE INH; +ASCO100031 PO; -ASCO500T19 PO; -ATOR10TA PO; +ATOR10TA70 PO; +BUDE10.22 INH; +BUME2TAB7 PO; -HYDR-3972 PO; +HYDR-3973 PO; +ISOS60TA71 PO; +LEVO100T9 PO; -LEVO75TA PO; +MAGN400C PO; -MAGN400T39 PO; +NITR0.4T SL; +PANT-47 PO; -POTA-366 PO
[2024-04-30 12:09] LABS: BASOPHILS % (AUTO) 1.1 % (0-1); EOSINOPHILS # (AUTO) 0.2 X10'3 (0-0.9); EOSINOPHILS % (AUTO) 6.1 % (0-6); HEMATOCRIT 24.7 % (42.0-52.0); LYMPHOCYTES # (AUTO) 0.8 X10'3 (1.1-4.8); LYMPHOCYTES % (AUTO) 24.6 % (21-51); MEAN CORPUSCULAR HEMOGLOBIN 28.5 PG (27.0-31.0); MEAN CORPUSCULAR HGB CONC 32.1 g/dL (33.0-36.5); MEAN CORPUSCULAR VOLUME 88.6 FL (78-98); MEAN PLATELET VOLUME 8.4 FL (7.4-10.4); MONOCYTES # (AUTO) 0.4 X10'3 (0-0.9); MONOCYTES % (AUTO) 13.6 % (2-12); NEUTROPHILS # (AUTO) 1.7 X10'3 (1.8-7.7); NEUTROPHILS % (AUTO) 54.6 % (42-75); PLATELET COUNT 138 X10'3 (140-440); RED BLOOD COUNT 2.79 X10'6 (4.70-6.10); RED CELL DISTRIBUTION WIDTH 17.6 % (11.5-14.5); WHITE BLOOD COUNT 3.2 X10'3 (4.5-11.0)
[2024-04-30 12:21] LABS: APTT 37 SECONDS (22-32); INR 1.6 INR; PROTHROMBIN TIME 15.8 SECONDS (9.0-12.0)
[2024-04-30 12:38] LABS: ALANINE AMINOTRANSFERASE 9 U/L (12-78); ALBUMIN 3.4 G/DL (3.4-5.0); ALBUMIN/GLOBULIN RATIO 0.8 (1.1-1.5); ALKALINE PHOSPHATASE 41 IU/L (46-116); ANION GAP 8 (8-16); ASPARTATE AMINO TRANSFERASE 14 U/L (10-37); BILIRUBIN,TOTAL 0.9 MG/DL (0.1-1.0); BLOOD UREA NITROGEN 49 MG/DL (7-18); BUN/CREATININE RATIO 22.8 (10.0-20.0); CALCIUM 9.5 MG/DL (8.5-10.1); CHLORIDE 102 MMOL/L (99-107); CREATININE 2.15 MG/DL (0.60-1.10); GLUCOSE 137 MG/DL (70-104); POTASSIUM 3.6 MMOL/L (3.5-5.1); SODIUM 140 MMOL/L (135-145); TOTAL CARBON DIOXIDE 30.3 MMOL/L (24-32); TOTAL PROTEIN 7.9 G/DL (6.4-8.2); eCRCL 26 ML/MIN; eGFR 29 ML/MIN
[2024-04-30 12:45] LABS: MAGNESIUM 1.5 MG/DL (1.5-2.4); PRO BRAIN NATRIURETIC PEPTIDE 2190 PG/ML (0-450)
[2024-04-30] MEDS ORDERED: magnesium Cl slow-release 64mg tablet PO PRN (14:15)
[2024-04-30] MEDS ORDERED: magnesium sulf-water 2g/50mL 50 ML IV PRN (14:15)
[2024-04-30] MEDS ORDERED: ondansetron/PF 4mg/2ml inj IV PRN (14:15)
[2024-04-30] MEDS ORDERED: potassium Cl 20 mEq SR tablet PO PRN ×2 (14:15)
[2024-04-30] MEDS ORDERED: acetaminophen 325mg tablet PO PRN (14:15)
[2024-04-30] MEDS ORDERED: potassium Cl 40MEQ/1/2NS 520ml 520 ML IV PRN (14:15)
[2024-04-30] MEDS ORDERED: magnesium sulf-water 4G/100mL 100 ML IV PRN (14:15)
[2024-04-30] MEDS ORDERED: bisacodyl 10mg suppository rectal RC PRN (14:15)
[2024-04-30] MEDS: furosemide 40mg/4ml inj IV ONE (14:15)
[2024-04-30] MEDS ORDERED: morphine 2 MG/ML inj. syringe IV PRN (14:15)
[2024-04-30] MEDS ORDERED: glucagon, human recombinant 1mg kit SUBCUT PRN (14:25)
[2024-04-30] MEDS ORDERED: DEXTROSE 15 GM of carb/4 tabs (each vial/BOTTLE has 4 tablets) PO PRN ×2 (14:25)
[2024-04-30] MEDS ORDERED: dextrose 50%-water 50ml dispensing syringe IV PRN ×2 (14:25)
[2024-04-30] MEDS: normal saline 1000ml 1,000 ML IV SCH (14:45)
[2024-04-30] MEDS: INSULIN LISPRO 100 UNIT/ML INSULN.PEN MULTI-DOSE SQ SCH (16:49)
[2024-04-30] MEDS: acetaminophen 325mg tablet PO SCH (16:49)
[2024-04-30] MEDS: morphine 2 MG/ML inj. syringe IV PRN (17:07)
[2024-04-30] MEDS ORDERED: POTA-366 PO (17:58)
[2024-04-30] MEDS ORDERED: POTA-84 PO (17:58)
[2024-04-30 18:15] LABS: D-DIMER 0.78 MG/L FEU (0-0.50)
[2024-04-30] MEDS ORDERED: nitroGLYCERIN 0.4mg SUBLingual tab SL PRN (18:15)
[2024-04-30] MEDS ORDERED: triamcinolone acet 0.1% cream 15gm TP PRN (18:15)
[2024-04-30 18:57] LABS: OSMOLALITY 314 MOSM/K (280-300)
[2024-04-30 19:05] LABS: CREATININE 2.07 MG/DL (0.60-1.10); SODIUM 142 MMOL/L (135-145); eCRCL 27 ML/MIN; eGFR 31 ML/MIN
[2024-04-30 19:13] LABS: THYROID STIMULATING HORMONE 3.05 ulU/ml (0.34-4.50)
[2024-04-30] MEDS: heparin, porcine 5000 units/ml vial SQ SCH (19:20)
[2024-04-30] MEDS ORDERED: heparin, porcine 5000 units/ml vial SQ SCH (20:00)
[2024-04-30 20:40] VITALS: BP 108/45; PULSE 73; RESP 16; TEMP 98.2; O2SAT 96
[2024-04-30 22:00] VITALS: BP 110/66; PULSE 61; RESP 20; TEMP 98.2; O2SAT 100
[2024-04-30] MEDS: duloxetine 30mg CAPSULE.DR PO SCH (22:04)
[2024-04-30] MEDS: pantoprazole 40mg Tablet.DR PO SCH (22:05)
[2024-04-30] MEDS: ascorbic acid 500mg tablet PO SCH (22:05)
[2024-04-30] MEDS: metoprolol tartrate 50mg tablet PO SCH (22:12)
[2024-04-30] MEDS: atorvastatin 10mg tablet PO SCH (22:14)
[2024-04-30] MEDS: furosemide 10 MG/1 ML 10ml inj IV SCH (22:20)
[2024-05-01 01:30] LABS: BILIRUBIN,URINE NEGATIVE (Neg); CLARITY,URINE CLEAR (Clear); COLOR,URINE YELLOW (Yellow); GLUCOSE, URINE NEGATIVE (Neg); KETONES,URINE NEGATIVE (Neg); LEUKOCYTE ESTERASE ,URINE NEGATIVE (Neg); NITRITES, URINE NEGATIVE (Neg); OCCULT BLOOD,URINE NEGATIVE (Neg); PROTEIN,URINE NEGATIVE (Neg); UROBILINOGEN,URINE 0.2 E.U/dL (0.2-1.0)
[2024-05-01 01:34] LABS: UA COLLECTION TYPE URINAL
[2024-05-01 02:00] VITALS: BP 116/42; PULSE 60; RESP 18; TEMP 98.2; O2SAT 100
[2024-05-01 06:00] VITALS: BP 116/33; PULSE 62; RESP 11; TEMP 98.2; O2SAT 98
[2024-05-01 07:36] LABS: BASOPHILS % (AUTO) 0.8 % (0-1); EOSINOPHILS # (AUTO) 0.2 X10'3 (0-0.9); EOSINOPHILS % (AUTO) 6.3 % (0-6); HEMATOCRIT 23.8 % (42.0-52.0); HEMOGLOBIN 7.8 g/dl (14.0-17.9); LYMPHOCYTES # (AUTO) 0.8 X10'3 (1.1-4.8); LYMPHOCYTES % (AUTO) 24.1 % (21-51); MEAN CORPUSCULAR HGB CONC 32.9 g/dL (33.0-36.5); MEAN CORPUSCULAR VOLUME 88.2 FL (78-98); MEAN PLATELET VOLUME 8.1 FL (7.4-10.4); MONOCYTES # (AUTO) 0.5 X10'3 (0-0.9); MONOCYTES % (AUTO) 14.6 % (2-12); NEUTROPHILS # (AUTO) 1.8 X10'3 (1.8-7.7); NEUTROPHILS % (AUTO) 54.2 % (42-75); PLATELET COUNT 138 X10'3 (140-440); RED CELL DISTRIBUTION WIDTH 17.7 % (11.5-14.5); WHITE BLOOD COUNT 3.4 X10'3 (4.5-11.0)
[2024-05-01] MEDS: levoTHYROXINE 100mcg tablet PO SCH (07:43)
[2024-05-01] MEDS: fenofibrate 145mg tablet PO SCH (07:46)
[2024-05-01] MEDS: isosorbide dinitrate 30mg tablet PO SCH (07:48)
[2024-05-01 08:03] LABS: ALANINE AMINOTRANSFERASE 9 U/L (12-78); ALBUMIN 3.3 G/DL (3.4-5.0); ALBUMIN/GLOBULIN RATIO 0.7 (1.1-1.5); ALKALINE PHOSPHATASE 36 IU/L (46-116); ANION GAP 8 (8-16); ASPARTATE AMINO TRANSFERASE 19 U/L (10-37); BILIRUBIN,TOTAL 1.1 MG/DL (0.1-1.0); BLOOD UREA NITROGEN 43 MG/DL (7-18); BUN/CREATININE RATIO 20.6 (10.0-20.0); CALCIUM 9.5 MG/DL (8.5-10.1); CHLORIDE 103 MMOL/L (99-107); CREATININE 2.09 MG/DL (0.60-1.10); GLUCOSE 108 MG/DL (70-104); POTASSIUM 3.9 MMOL/L (3.5-5.1); SODIUM 141 MMOL/L (135-145); TOTAL CARBON DIOXIDE 29.8 MMOL/L (24-32); TOTAL PROTEIN 7.9 G/DL (6.4-8.2); eCRCL 27 ML/MIN; eGFR 30 ML/MIN
[2024-05-01 11:00] VITALS: BP 95/39; PULSE 67; RESP 13; TEMP 98.1; O2SAT 98
[2024-05-01 15:00] VITALS: BP 102/54; PULSE 64; RESP 18; TEMP 97.7; O2SAT 98
[2024-05-01 18:00] VITALS: BP 111/48; PULSE 61; RESP 16; TEMP 97.7; O2SAT 96
[2024-05-01] MEDS: gabapentin 400mg capsule PO PRN (20:13)
[2024-05-01] MEDS: Melatonin 3mg tablet PO SCH (20:14)
[2024-05-01] MEDS: polyethylene glycol 3350 17gm powd pack PO SCH (20:24)
[2024-05-01 22:00] VITALS: BP 132/39; PULSE 66; RESP 17; TEMP 97.8; O2SAT 96
[2024-05-02] VITALS (8 sets, daily range): BP systolic 95–114; BP diastolic 39–53; PULSE 60–64; RESP 11–22; TEMP 97.2–98.3; O2SAT 93–98
[2024-05-02] MEDS: HYDROcodone/acetaminophen 5mg/325mg tablet PO PRN (00:06)
[2024-05-02 07:49] LABS: BASOPHILS % (AUTO) 0.4 % (0-1); EOSINOPHILS # (AUTO) 0.2 X10'3 (0-0.9); EOSINOPHILS % (AUTO) 3.3 % (0-6); HEMATOCRIT 26.1 % (42.0-52.0); HEMOGLOBIN 8.6 g/dl (14.0-17.9); LYMPHOCYTES # (AUTO) 0.8 X10'3 (1.1-4.8); LYMPHOCYTES % (AUTO) 16.2 % (21-51); MEAN CORPUSCULAR HEMOGLOBIN 28.7 PG (27.0-31.0); MEAN CORPUSCULAR HGB CONC 32.8 g/dL (33.0-36.5); MEAN CORPUSCULAR VOLUME 87.5 FL (78-98); MEAN PLATELET VOLUME 8.4 FL (7.4-10.4); MONOCYTES # (AUTO) 0.7 X10'3 (0-0.9); MONOCYTES % (AUTO) 13.1 % (2-12); NEUTROPHILS # (AUTO) 3.4 X10'3 (1.8-7.7); PLATELET COUNT 135 X10'3 (140-440); RED BLOOD COUNT 2.99 X10'6 (4.70-6.10); RED CELL DISTRIBUTION WIDTH 17.5 % (11.5-14.5)
[2024-05-02 08:35] LABS: ALANINE AMINOTRANSFERASE 12 U/L (12-78); ALBUMIN 3.6 G/DL (3.4-5.0); ALBUMIN/GLOBULIN RATIO 0.8 (1.1-1.5); ALKALINE PHOSPHATASE 41 IU/L (46-116); ANION GAP 10 (8-16); ASPARTATE AMINO TRANSFERASE 21 U/L (10-37); BILIRUBIN,TOTAL 1.1 MG/DL (0.1-1.0); BLOOD UREA NITROGEN 41 MG/DL (7-18); BUN/CREATININE RATIO 19.1 (10.0-20.0); CALCIUM 10.6 MG/DL (8.5-10.1); CHLORIDE 102 MMOL/L (99-107); CREATININE 2.15 MG/DL (0.60-1.10); GLUCOSE 125 MG/DL (70-104); POTASSIUM 4.1 MMOL/L (3.5-5.1); PRO BRAIN NATRIURETIC PEPTIDE 3240 PG/ML (0-450); SODIUM 140 MMOL/L (135-145); TOTAL CARBON DIOXIDE 28.4 MMOL/L (24-32); TOTAL PROTEIN 8.2 G/DL (6.4-8.2); eCRCL 26 ML/MIN; eGFR 29 ML/MIN
[2024-05-02] MEDS: neomy sulf/bacitrac zn/polymixin b oint 14.2 gm tube TP SCH (16:07)
[2024-05-02] MEDS: LORazepam 0.5 MG tablet PO PRN (20:47)
[2024-05-02] MEDS: furosemide 40mg/4ml inj IV SCH (20:47)
[2024-05-03] VITALS (9 sets, daily range): BP systolic 98–108; BP diastolic 43–49; PULSE 60–69; RESP 13–22; TEMP 97.3–98.2; O2SAT 92–100
[2024-05-03 07:25] LABS: BASOPHILS % (AUTO) 0.4 % (0-1); EOSINOPHILS # (AUTO) 0.2 X10'3 (0-0.9); EOSINOPHILS % (AUTO) 3.5 % (0-6); HEMATOCRIT 24.5 % (42.0-52.0); HEMOGLOBIN 8.1 g/dl (14.0-17.9); LYMPHOCYTES # (AUTO) 0.6 X10'3 (1.1-4.8); LYMPHOCYTES % (AUTO) 12.7 % (21-51); MEAN CORPUSCULAR HEMOGLOBIN 28.7 PG (27.0-31.0); MEAN CORPUSCULAR HGB CONC 32.9 g/dL (33.0-36.5); MEAN CORPUSCULAR VOLUME 87.1 FL (78-98); MEAN PLATELET VOLUME 8.6 FL (7.4-10.4); MONOCYTES # (AUTO) 0.7 X10'3 (0-0.9); NEUTROPHILS # (AUTO) 3.2 X10'3 (1.8-7.7); NEUTROPHILS % (AUTO) 68.4 % (42-75); PLATELET COUNT 132 X10'3 (140-440); RED BLOOD COUNT 2.81 X10'6 (4.70-6.10); RED CELL DISTRIBUTION WIDTH 17.1 % (11.5-14.5); WHITE BLOOD COUNT 4.6 X10'3 (4.5-11.0)
[2024-05-03 08:28] LABS: ALANINE AMINOTRANSFERASE 13 U/L (12-78); ALBUMIN 3.4 G/DL (3.4-5.0); ALBUMIN/GLOBULIN RATIO 0.8 (1.1-1.5); ALKALINE PHOSPHATASE 40 IU/L (46-116); ANION GAP 9 (8-16); ASPARTATE AMINO TRANSFERASE 27 U/L (10-37); BILIRUBIN,TOTAL 1.3 MG/DL (0.1-1.0); BLOOD UREA NITROGEN 41 MG/DL (7-18); BUN/CREATININE RATIO 19.1 (10.0-20.0); CALCIUM 9.8 MG/DL (8.5-10.1); CHLORIDE 100 MMOL/L (99-107); CREATININE 2.15 MG/DL (0.60-1.10); GLUCOSE 123 MG/DL (70-104); POTASSIUM 4.3 MMOL/L (3.5-5.1); SODIUM 138 MMOL/L (135-145); TOTAL CARBON DIOXIDE 29.1 MMOL/L (24-32); TOTAL PROTEIN 7.7 G/DL (6.4-8.2); eCRCL 26 ML/MIN; eGFR 29 ML/MIN
[2024-05-04 02:00] VITALS: BP 144/48; PULSE 66; RESP 16; TEMP 97.5; O2SAT 98
[2024-05-04 06:00] VITALS: BP 112/55; PULSE 69; RESP 20; TEMP 97; O2SAT 100
[2024-05-04 06:30] VITALS: O2SAT 100
[2024-05-04 06:37] LABS: BASOPHILS % (AUTO) 0.6 % (0-1); EOSINOPHILS # (AUTO) 0.2 X10'3 (0-0.9); EOSINOPHILS % (AUTO) 4.8 % (0-6); HEMATOCRIT 24.6 % (42.0-52.0); HEMOGLOBIN 8.1 g/dl (14.0-17.9); LYMPHOCYTES # (AUTO) 0.7 X10'3 (1.1-4.8); LYMPHOCYTES % (AUTO) 19.1 % (21-51); MEAN CORPUSCULAR HEMOGLOBIN 28.8 PG (27.0-31.0); MEAN CORPUSCULAR HGB CONC 32.8 g/dL (33.0-36.5); MEAN CORPUSCULAR VOLUME 87.7 FL (78-98); MEAN PLATELET VOLUME 8.4 FL (7.4-10.4); MONOCYTES # (AUTO) 0.7 X10'3 (0-0.9); MONOCYTES % (AUTO) 17.9 % (2-12); NEUTROPHILS # (AUTO) 2.1 X10'3 (1.8-7.7); NEUTROPHILS % (AUTO) 57.6 % (42-75); PLATELET COUNT 122 X10'3 (140-440); RED CELL DISTRIBUTION WIDTH 17.7 % (11.5-14.5); WHITE BLOOD COUNT 3.7 X10'3 (4.5-11.0)
[2024-05-04 07:35] LABS: ALANINE AMINOTRANSFERASE 14 U/L (12-78); ALBUMIN 3.1 G/DL (3.4-5.0); ALBUMIN/GLOBULIN RATIO 0.7 (1.1-1.5); ALKALINE PHOSPHATASE 36 IU/L (46-116); ANION GAP 11 (8-16); ASPARTATE AMINO TRANSFERASE 27 U/L (10-37); BILIRUBIN,TOTAL 1.4 MG/DL (0.1-1.0); BLOOD UREA NITROGEN 40 MG/DL (7-18); BUN/CREATININE RATIO 20.4 (10.0-20.0); CALCIUM 9.9 MG/DL (8.5-10.1); CHLORIDE 101 MMOL/L (99-107); CREATININE 1.96 MG/DL (0.60-1.10); GLUCOSE 122 MG/DL (70-104); POTASSIUM 3.8 MMOL/L (3.5-5.1); PRO BRAIN NATRIURETIC PEPTIDE 3280 PG/ML (0-450); SODIUM 139 MMOL/L (135-145); TOTAL CARBON DIOXIDE 27.4 MMOL/L (24-32); TOTAL PROTEIN 7.8 G/DL (6.4-8.2); eCRCL 29 ML/MIN; eGFR 33 ML/MIN
[2024-05-04 09:15] VITALS: RESP 20; O2SAT 100
[2024-05-04 10:00] VITALS: BP 98/41; PULSE 66; RESP 14; TEMP 98.6; O2SAT 96
[2024-05-04] MEDS ORDERED: FURO20TA4 PO (10:40)
== END 2024-05-04 12:24 | disposition home health service (06) | DRG 682 ==
LOC: ER 11:14 → ED HOLD 13:50 → PCU 3S 20:40
PROVIDERS: ADMIT Internal Medicine; ATTEND Internal Medicine
DX: N17.0 Acute kidney failure with tubular necrosis (principal); I50.33 Acute on chronic diastolic (congestive) heart failure; I13.0 Hypertensive heart and chronic kidney disease with heart failure and stage 1 through stage 4 chronic kidney disease, or unspecified chronic kidney disease; J96.11 Chronic respiratory failure with hypoxia; D61.818 Other pancytopenia; I48.20 Chronic atrial fibrillation, unspecified; I42.9 Cardiomyopathy, unspecified; N18.4 Chronic kidney disease, stage 4 (severe); D50.9 Iron deficiency anemia, unspecified; F31.9 Bipolar disorder, unspecified; E03.9 Hypothyroidism, unspecified; I27.20 Pulmonary hypertension, unspecified; E11.22 Type 2 diabetes mellitus with diabetic chronic kidney disease; N40.0 Benign prostatic hyperplasia without lower urinary tract symptoms; I25.10 Atherosclerotic heart disease of native coronary artery without angina pectoris; F41.9 Anxiety disorder, unspecified; J44.9 Chronic obstructive pulmonary disease, unspecified; Z86.711 Personal history of pulmonary embolism; Z87.891 Personal history of nicotine dependence; Z90.49 Acquired absence of other specified parts of digestive tract; Z88.5 Allergy status to narcotic agent
CPT/HCPCS: 36415; 71045; 76700; 78582; 80053; 81003; 82565; 82570; 82948; 83036; 83735; 83880; 83930; 83935; 84295; 84300; 84443; 84484; 85025; 85379; 85610; 85730; 87081; 87207; 93005; 93306; 93970; 97161; 97530; 99285; A6213; A6250; A6449; A9539; A9540; G0378; J1644; J1815; J1940; J2270; J7030